=== PATIENT | female | born 1970 ===

== ENCOUNTER 2018-01-14 06:52 | Inpatient (IN) | payer SELFPAY ==
[2018-01-14 06:53] VITALS: BMI 44.5
[2018-01-14] MEDS ORDERED: Sodium Chloride 0.9% 1,000 ML IV ONE (07:15)
[2018-01-14] MEDS ORDERED: Sodium Chloride 0.9% 1,000 ML ONE (07:29)
--- NOTE | 2018-01-14 08:07 | C.PDOC ---
History Of Present Illness 47-year-old female, presents to the emergency department for evaluation of epigastrc and right upper quadrant abdominal pain, that is associated with nausea and a few episodes of non-bloody/non-bilious vomiting. Patient admits to decreased appetite. States she was able to tolerate PO intake yesterday without vomiting. She notes associated black stool. No fever, chills, back pain, dizziness, chest pain, shortness of breath or any other associated symptoms. No other complaints at this time. Time Seen by Provider: 01/14/18 07:07 Chief Complaint (Nursing): Abdominal Pain History Per: Patient History/Exam Limitations: no limitations Onset/Duration Of Symptoms: Waxing/Waning Current Symptoms Are (Timing): Still Present Severity: Moderate Location Of Pain/Discomfort: RUQ, Epigastric Past Medical History Reviewed: Historical Data, Nursing Documentation, Vital Signs Vital Signs: Last Vital Signs Temp 98.4 F 01/14/18 15:45 Pulse 66 01/14/18 16:06 Resp 20 01/14/18 15:45 BP 106/69 01/14/18 15:45 Pulse Ox 98 01/14/18 15:45 - Medical History PMH: Deep Vein Thrombosis, Gastritis Family History: States: No Known Family Hx - Social History Hx Tobacco Use: No Hx Alcohol Use: No Hx Substance Use: No - Immunization History Hx Tetanus Toxoid Vaccination: No Hx Influenza Vaccination: No Hx Pneumococcal Vaccination: No Review Of Systems Constitutional: Negative for: Fever, Chills Cardiovascular: Negative for: Chest Pain, Palpitations Respiratory: Negative for: Shortness of Breath Gastrointestinal: Positive for: Nausea, Vomiting, Abdominal Pain, Melena Skin: Negative for: Rash Neurological: Negative for: Weakness, Numbness, Headache, Dizziness Physical Exam - Physical Exam Appears: Well, Non-toxic, No Acute Distress Skin: Normal Color, Warm, Dry, No Rash Head: Normacephalic Eye(s): bilateral: PERRL Nose: No Flaring, No Discharge Oral Mucosa: Moist, No Drooling Throat: No Erythema, No Drooling Neck: Normal ROM, Trachea Midline, Supple Chest: Symmetrical Cardiovascular: Rhythm Regular, No Murmur Respiratory: No Decreased Breath Sounds, No Accessory Muscle Use, No Stridor, No Wheezing Gastrointestinal/Abdominal: Soft, Tenderness (epigastric, mod right upper quadrant.), No Distention, No Guarding, No Rebound Back: No CVA Tenderness Extremity: Normal ROM, No Deformity, No Swelling Neurological/Psych: Oriented x3, Normal Speech ED Course And Treatment - Laboratory Results Result Diagrams: 01/14/18 08:04 01/14/18 08:04 Lab Interpretation: Normal ECG: Interpreted By Me, Viewed By Me ECG Rhythm: Sinus Rhythm (64) ECG Interpretation: Normal O2 Sat by Pulse Oximetry: 97 (RA) Pulse Ox Interpretation: Normal - CT Scan/US Ct abd/pelvis Other Rad Studies (CT/US): Radiology Report Reviewed CT/US Interpretation: pprover : Felice Winn MD. Approver2 : Report Date : 01/14/2018 10:23:32. My Comment : . This report is currently processing and HAS NOT BEEN OFFICIALLY SIGNED BY THE PHYSICIAN - ESTIMATED TIME OF APPROVAL IS 01/14/2018 11:16. Date of service: 01/14/2018. PROCEDURE: CT Abdomen and Pelvis with contrast. HISTORY: abd pain. COMPARISON: None. TECHNIQUE: Contrast dose: 100 mL Visipaque 320. Radiation dose: Total exam DLP = 590.07 mGy-cm. This CT exam was performed using one or more of the following dose reduction techniques: Automated exposure control, adjustment of the mA and/or kV according to patient size, and/or use of iterative reconstruction technique. FINDINGS: LOWER THORAX: Unremarkable. LIVER: Unremarkable. No gross lesion or ductal dilatation. GALLBLADDER AND BILE DUCTS : Cholelithiasis. Mild mural thickening. Findings somewhat concerning for cholecystitis. No pericholecystic fluid/ inflammatory change. Consider correlation with ultrasound. PANCREAS: Unremarkable. No gross lesion or ductal dilatation. SPLEEN: Unremarkable. ADRENALS: Unremarkable. No mass. KIDNEYS AND URETERS: Unremarkable. No hydronephrosis. No solid mass. VASCULATURE: Unremarkable. No aortic aneurysm. BOWEL: Unremarkable. No obstruction. No gross mural thickening. APPENDIX: Normal appendix. PERITONEUM : Unremarkable. No free fluid. No free air. LYMPH NODES: Unremarkable. No enlarged lymph nodes. BLADDER: Unremarkable. REPRODUCTIVE: Normal uterus. Intrauterine device noted. Two left ovarian cysts, 2.1 cm and 2.6 cm. Likely physiologic. BONES: No acute fracture. OTHER FINDINGS: In the gluteal subcutaneous soft tissues, there is heterogeneous soft tissue density which may reflect cosmetic far in substance injection. Please correlate with history. IMPRESSION: Findings concerning for cholecystitis. Consider correlation with ultrasound examination. 2 left ovarian cysts, likely physiologic. Minor findings as above. Progress Note: Pt was OBS in ED for 5 hours and remained stable. On re- evaluation, pt is afebrile, hemodynamicaly stable. Still c/o pain RUQ. ENT: no acute findings. Lungs: CTA B/L, BS equal B/L. Abd: (+) mod RUQ tenderness, (-) guaridng, (-) rebound. neurologicaly intact. Blood work review and appears normal. Imaging review and c/w acute cholecystitis. results review and discussed with patient, admission offered. Surgical consult called. Admission arranged. Disposition - Disposition Disposition: HOSPITALIZED Disposition Time: 13:40 Condition: GOOD - Clinical Impression Clinical Impression: Cholecystitis - Scribe Statement The provider has reviewed the documentation as recorded by the Scribe (Gillian Sierra) All medical record entries made by the Scribe were at my direction and personally dictated by me. I have reviewed the chart and agree that the record accurately reflects my personal performance of the history, physical exam, medical decision making, and the department course for this patient. I have also personally directed, reviewed, and agree with the discharge instructions and disposition.
[2018-01-14 08:17] LABS: BASO # 0.1 K/uL (0.0-0.2); BASO % 0.6 % (0.0-2.0); EOS # 0.1 K/uL (0.0-0.7); EOS % 0.9 % (0.0-4.0); HEMOGLOBIN 12.2 g/dL (11.0-16.0); LYMPH # 0.9 K/uL (1.0-4.3); LYMPH % 9.4 % (20.0-40.0); MEAN CELL VOLUME 88.4 fL (81.0-99.0); MEAN CORPUSCULAR HEMOGLOBIN 29.9 pg (27.0-31.0); MEAN CORPUSCULAR HGB CONC 33.8 g/dL (33.0-37.0); MEAN PLATELET VOLUME 8.3 fL (7.2-11.7); MONO # 0.4 K/uL (0.0-0.8); MONO % 4.5 % (0.0-10.0); NEUT # 8.2 K/uL (1.8-7.0); NEUT % 84.6 % (50.0-75.0); PLATELET COUNT 399 K/uL (130-400); RBC 4.08 Mil/uL (3.80-5.20); RED CELL DISTRIBUTION WIDTH 13.9 % (11.5-14.5)
[2018-01-14 08:20] LABS: HCG,QUALITATIVE URINE NEGATIVE (NEGATIVE)
[2018-01-14 08:21] LABS: WHITE BLOOD COUNT 9.7 K/uL (4.8-10.8)
[2018-01-14 08:30] LABS: URINE BILIRUBIN NEGATIVE (NEGATIVE); URINE BLOOD NEGATIVE (NEGATIVE); URINE CLARITY Hazy (Clear); URINE COLOR Yellow (YELLOW); URINE GLUCOSE (UA) NORMAL (Normal); URINE LEUKOCYTE ESTERASE NEG Leu/uL (Negative); URINE PROTEIN NEGATIVE (NEGATIVE); URINE UROBILINOGEN NORMAL mg/dL (0.2-1.0)
[2018-01-14 08:35] LABS: ALB/GLOB RATIO 1.5 (1.0-2.1); ALT/SGPT 33 U/L (9-52); AMYLASE 105 U/L (30-110); AST/SGOT 28 U/L (14-36); BLOOD UREA NITROGEN 9 mg/dL (7-17); CALCIUM 8.8 mg/dl (8.6-10.4); GFR AFRICAN-AMERICAN > 60; GFR NON-AFRICAN AMERICAN > 60; LIPASE 46 U/L (23-300)
[2018-01-14 08:52] LABS: SQUAMOUS EPITHIAL 1 /hpf (0-5); URINE AMORPHOUS SEDIMENT FEW /ul (<OCC)
[2018-01-14 09:04] LABS: LYMPHOCYTE 5 % (20-40); MONOCYTE 2 % (0-10); NEUTROPHIL 93 % (50-75); PLATELET ESTIMATE NORMAL (NORMAL); TOTAL CELLS COUNTED 100
[2018-01-14] MEDS ORDERED: Iodixanol 320 MG/ML 100 ML BOTTLE IV ONE (10:01)
--- NOTE | 2018-01-14 11:11 | CT ---
Date of service: 01/14/2018 PROCEDURE: CT Abdomen and Pelvis with contrast HISTORY: abd pain COMPARISON: None. TECHNIQUE: Contrast dose: 100 mL Visipaque 320 Radiation dose: Total exam DLP = 590.07 mGy-cm. This CT exam was performed using one or more of the following dose reduction techniques: Automated exposure control, adjustment of the mA and/or kV according to patient size, and/or use of iterative reconstruction technique. FINDINGS: LOWER THORAX: Unremarkable. LIVER: Unremarkable. No gross lesion or ductal dilatation. GALLBLADDER AND BILE DUCTS: Cholelithiasis. Mild mural thickening. Findings somewhat concerning for cholecystitis. No pericholecystic fluid/ inflammatory change. Consider correlation with ultrasound. PANCREAS: Unremarkable. No gross lesion or ductal dilatation. SPLEEN: Unremarkable. ADRENALS: Unremarkable. No mass. KIDNEYS AND URETERS: Unremarkable. No hydronephrosis. No solid mass. VASCULATURE: Unremarkable. No aortic aneurysm. BOWEL: Unremarkable. No obstruction. No gross mural thickening. APPENDIX: Normal appendix. PERITONEUM: Unremarkable. No free fluid. No free air. LYMPH NODES: Unremarkable. No enlarged lymph nodes. BLADDER: Unremarkable. REPRODUCTIVE: Normal uterus. Intrauterine device noted. Two left ovarian cysts, 2.1 cm and 2.6 cm. Likely physiologic. BONES: No acute fracture. OTHER FINDINGS: In the gluteal subcutaneous soft tissues, there is heterogeneous soft tissue density which may reflect cosmetic far in substance injection. Please correlate with history. IMPRESSION: Findings concerning for cholecystitis. Consider correlation with ultrasound examination. 2 left ovarian cysts, likely physiologic. Minor findings as above.
--- NOTE | 2018-01-14 13:35 | US ---
Date of service: 01/14/2018 HISTORY: RUQ pain COMPARISON: None. TECHNIQUE: Sonographic evaluation of the right upper quadrant of the abdomen. FINDINGS: LIVER: Measures 14.9 cm in length. Increased echogenicity of the liver parenchyma. No mass. No intrahepatic bile duct dilatation. GALLBLADDER: Cholelithiasis with large shadowing gallstones, including 1 in the gallbladder neck, and questionable areas of wall thickening. Sonographic Willingham sign was not elicited. COMMON BILE DUCT: Measures 5 mm. No stones. No dilatation. PANCREAS: Unremarkable as visualized. No mass. No ductal dilatation. RIGHT KIDNEY: Measures 11.3 x 3.7 x 4.0 cm in length. Normal echogenicity. No calculus, mass, or hydronephrosis. AORTA: No aneurysmal dilatation. IVC: Unremarkable. OTHER FINDINGS: None . IMPRESSION: Hepatic steatosis. Cholelithiasis with findings equivocal for acute cholecystitis. Nuclear medicine HIDA scan is recommended to further evaluate patency of the cystic duct.
--- NOTE | 2018-01-14 14:28 | CP.PCM.HP ---
<Anastasia Hair - Last Filed: 01/14/18 18:36> History of Present Illness - History of Present Illness History of Present Illness: cc: abdominal pain HPI: Patient is a 47 year old female with dyslipidemia complaining of abdominal pain x5 days. Characterizes pain as severe, rated as 10/10 last night , which spurred her to come in today. Currently rates the pain as 2/10. Patient states that pain wakes her up in the middle of the night, and she denies any timeline pattern with meals or bowel movements. Patient describes pain as nonradiating and localized to the right upper quadrant and towards midline, with additional pain to the right shoulder with deep inspiration. She has only started having these pains since she started taking "[place] weight-loss seeds ", but also that if she did not consume them she would be constipated. Patient started taking Pepto-bismol 4 days ago (Fri), which did not relieve her symptoms. Apple-cider vinegar with baking soda aided her manually induced vomiting (x3 episodes) because emesis relieves her pain. She believes that the induction of vomiting has contributed to the development of a nonproductive cough and sore throat. Patient states that she has noticed black stool starting 5 days ago (Addis). Patient went to [place] last month (12/15-) where she ate large quantities of seafood. She frequently eats seafood in the [facility] as well. Patient also complains of chills and some tingling in hands bilaterally. Patient denies hematochezia, hematemesis, dysurea, urinary frequency, chest pain , palpitations, dyspnea, and fever, headache, dizziness. Past medical history: dyslipidemia, anemia, broken wrist (left) Allergies: NKDA Medications: Ranitidine, TUMs Past surgical history: C section in 2012, gastrointestinal polyp resection Family history: -Father: hypertension, coronary artery disease ([place] at 70 years old), hernia, possible prostate cancer -Mother: hernia -Grandfather: prostate cancer -Grandmother: uterine cancer LMP: June, sunil-menopausal., light bleeding since then Social: Social alcohol, one 12oz beer per week. Denies ever tobacco, ever illicit drugs Full Code Present on Admission - Present on Admission Any Indicators Present on Admission: No Review of Systems - Constitutional Constitutional: Chills, Headache. absent: Fever - EENT Nose/Mouth/Throat: Other Additional comments: bitter taste - Cardiovascular Cardiovascular: Chest Pain. absent: Palpitations, Radiating Pain - Respiratory Respiratory: Cough. absent: Dyspnea, Hemoptysis, Excessive Mucous Production - Gastrointestinal Gastrointestinal: Melena, Odynophagia, Vomiting. absent: Constipation, Dysphagia, Hematemesis, Hematochezia, Nausea - Genitourinary Genitourinary: absent: Difficulty Urinating, Dysuria, Pyuria, Urinary Frequency - Reproductive: Female Reproductive:Female: Light Menses - Menstruation Menstruation: Light Menses - Musculoskeletal Musculoskeletal: Tingling Additional comments: both hands - Integumentary Integumentary: absent: Erythema, Lesions, Rash - Neurological Neurological: Headaches, Tingling Past Patient History - Infectious Disease Hx of Infectious Diseases: None - Past Social History Smoking Status: Never Smoked Alcohol: Social Drugs: Denies - CARDIAC Hx Cardiac Disorders: Yes - PULMONARY Hx Respiratory Disorders: No - NEUROLOGICAL Hx Neurological Disorder: No - HEENT Hx HEENT Problems: No - ENDOCRINE/METABOLIC Hx Endocrine Disorders: No - HEMATOLOGICAL/ONCOLOGICAL Hx Blood Disorders: Yes Other/Comment: COAGULUPATHY - INTEGUMENTARY Hx Dermatological Problems: No - MUSCULOSKELETAL/RHEUMATOLOGICAL Hx Musculoskeletal Disorders: No - GASTROINTESTINAL Hx Gastritis: Yes - GENITOURINARY/GYNECOLOGICAL Hx Genitourinary Disorders: No - PSYCHIATRIC Hx Substance Use: No - SURGICAL HISTORY Hx Surgeries: Yes Hx Section: Yes Other/Comment: stomach tumor surgery - ANESTHESIA Hx Anesthesia: No Hx Anesthesia Reactions: No Hx Malignant Hyperthermia: No Meds Allergies/Adverse Reactions: Allergies Allergy/AdvReac Type Severity Reaction Status Date / Time No Known Allergies Allergy Verified 08/22/16 10:12 Physical Exam - Constitutional Appears: Well, No Acute Distress - Head Exam Head Exam: ATRAUMATIC, NORMAL INSPECTION, NORMOCEPHALIC - Eye Exam Eye Exam: EOMI, Normal appearance, PERRL. absent: Scleral icterus Pupil Exam: NORMAL ACCOMODATION, PERRL - ENT Exam ENT Exam: Mucous Membranes Dry - Neck Exam Neck exam: Positive for: Normal Inspection, Tenderness. Negative for: Lymphadenopathy, Thyromegaly - Respiratory Exam Respiratory Exam: Clear to Auscultation Bilateral, NORMAL BREATHING PATTERN. absent: Accessory Muscle Use, Rales, Rhonchi, Wheezes, Respiratory Distress, Stridor - Cardiovascular Exam Cardiovascular Exam: REGULAR RHYTHM, RRR, +S1, +S2 - GI/Abdominal Exam GI & Abdominal Exam: Guarding, Normal Bowel Sounds, Soft, Tenderness. absent: Firm, Rebound, Rigid Additional comments: right upper quadrant tenderness upon palpation no peritoneal sign, negative Willingham's sign, referred pain to right shoulder on deep inspiration obese - Rectal Exam Rectal Exam: NORMAL INSPECTION. absent: Black Stool Additional comments: Pimple on mid upper right cheek No gross blood on observation No hemorrhoids, varices noticed on palpation No gross blood or stool in rectal vault - Extremities Exam Extremities exam: Positive for: normal inspection, pedal pulses present. Negative for: pedal edema, tenderness Additional comments: IV in place, c/d - Skin Skin Exam: Dry, Intact, Normal Color, Warm Results - Vital Signs Recent Vital Signs: Last Vital Signs Temp 98.3 F 01/14/18 11:42 Pulse 59 L 01/14/18 11:42 Resp 18 01/14/18 11:42 BP 101/68 01/14/18 11:42 Pulse Ox 97 01/14/18 14:13 - Labs Result Diagrams: 01/14/18 08:04 01/14/18 08:04 Labs: Laboratory Results - last 24 hr 01/14/18 01/14/18 01/14/18 08:04 08:04 08:04 WBC 9.7 D RBC 4.08 Hgb 12.2 Hct 36.1 MCV 88.4 MCH 29.9 MCHC 33.8 RDW 13.9 Plt Count 399 MPV 8.3 Neut % (Auto) 84.6 H Lymph % (Auto) 9.[address] [place] % (Auto) 4.5 Eos % (Auto) 0.9 Baso % (Auto) 0.6 Neut # (Auto) 8.2 H Lymph # (Auto) 0.[address] [place] # (Auto) 0.4 Eos # (Auto) 0.1 Baso # (Auto) 0.1 Neutrophils % (Manual) 93 H Lymphocytes % (Manual) 5 L Monocytes % (Manual) 2 Platelet Estimate Normal RBC Morphology Normal Sodium 140 Potassium 3.8 Chloride 101 Carbon Dioxide 30 Anion Gap 12 BUN 9 Creatinine 0.6 L Est GFR ( Amer) > 60 Est GFR (Non-Af Amer) > 60 Random Glucose 115 H Calcium 8.8 Total Bilirubin 0.2 AST 28 ALT 33 Alkaline Phosphatase 117 Total Protein 6.7 Albumin 4.0 Globulin 2.7 Albumin/Globulin Ratio 1.5 Amylase 105 Lipase 46 Urine Color Yellow Urine Clarity Hazy Urine pH 8.0 Ur Specific [place] 1.011 Urine Protein Negative Urine Glucose (UA) Normal Urine Ketones Negative Urine Blood Negative Urine Nitrate Negative Urine Bilirubin Negative Urine Urobilinogen Normal Ur Leukocyte Esterase Neg Urine WBC (Auto) 1 Urine RBC (Auto) < 1 Ur Squamous Epith Cells 1 Calcium Oxalate Crystal None Amorphous Sediment Few H Urine Bacteria None Urine HCG, Qual Negative Assessment & Plan - Assessment and Plan (Free Text) Plan: 1) Abdominal Pain, acute cholecystitis biliary colic pain x5 days Total bili on admission: 0.2 Amylase on admission: 105 Lipase on admission: [address] (01/14/18): Mild mural thickening. Findings somewhat concerning for cholecystitis. No pericholecystic fluid/inflammatory change. Two left ovarian cysts, 2.1 cm and 2.6 cm, likely physiologic. Abd US (01/14/18): Cholelithiasis with findings equivocal for acute cholecystitis. Surgery consulted: Dr. Peoples - luzma appreciated - scheduled for lap connie in the am avila (01/15) - NPO starting now Medications: -Flagyl 250mg in 50mls @ 100mls/hr IVPB q8h -Dilaudid 0.5mg IV q4h PRN for pain -NS 1L at 100mls/hr IV q10h 2) Black Stools Started x5 days, before Pepto-bismol use Unobserved this visit H&H on admission: 12.2 and 36.1, respectively Hx gastritis, home TUMs use. No NSAIDs, no Fe, no ASA. Rectal exam: benign GI consulted: Dr. Sandra - luzma appreciated - EGD in the AM - NPO starting now - stool occult blood x3 - f/u CBC in the AM for H&H - Protonix 40mg IV q12 3) Lipid disorder On no medications for cholesterol - f/u lipid panel - consider starting statin - discuss lifestyle modifications to control her weight 4) Vitamin D deficiency - f/u VitD on am labs 5) Overweight - mildly hyperglycemic on admission - f/u lipid panel - f/u A1c - f/u TSH Prophylactic Measures - anticoag held for now until r/o GI bleed - Protonix 40mg IV q12h - NPO until surgery tomorrow - monitor on tele Anastasia Hair PGY-1. Case discussed with Dr. Crump. - Date & Time Date: 01/14/18 Time: 18:13 <Jeannine Crump V - Last Filed: 01/14/18 22:46> Results - Vital Signs Recent Vital Signs: Last Vital Signs Temp 98.5 F 01/14/18 15:10 Pulse 66 01/14/18 15:10 Resp 16 01/14/18 15:10 BP 135/85 01/14/18 15:10 Pulse Ox 99 01/14/18 15:10 - Labs Result Diagrams: 01/14/18 08:04 01/14/18 08:04 Labs: Laboratory Results - last 24 hr 01/14/18 01/14/18 01/14/18 08:04 08:04 08:04 WBC 9.7 D RBC 4.08 Hgb 12.2 Hct 36.1 MCV 88.4 MCH 29.9 MCHC 33.8 RDW 13.9 Plt Count 399 MPV 8.3 Neut % (Auto) 84.6 H Lymph % (Auto) 9.[address] [place] % (Auto) 4.5 Eos % (Auto) 0.9 Baso % (Auto) 0.6 Neut # (Auto) 8.2 H Lymph # (Auto) 0.[address] [place] # (Auto) 0.4 Eos # (Auto) 0.1 Baso # (Auto) 0.1 Neutrophils % (Manual) 93 H Lymphocytes % (Manual) 5 L Monocytes % (Manual) 2 Platelet Estimate Normal RBC Morphology Normal Sodium 140 Potassium 3.8 Chloride 101 Carbon Dioxide 30 Anion Gap 12 BUN 9 Creatinine 0.6 L Est GFR ( Amer) > 60 Est GFR (Non-Af Amer) > 60 Random Glucose 115 H Calcium 8.8 Total Bilirubin 0.2 AST 28 ALT 33 Alkaline Phosphatase 117 Total Protein 6.7 Albumin 4.0 Globulin 2.7 Albumin/Globulin Ratio 1.5 Amylase 105 Lipase 46 Beta HCG, Quant < 2.39 Urine Color Yellow Urine Clarity Hazy Urine pH 8.0 Ur Specific [place] 1.011 Urine Protein Negative Urine Glucose (UA) Normal Urine Ketones Negative Urine Blood Negative Urine Nitrate Negative Urine Bilirubin Negative Urine Urobilinogen Normal Ur Leukocyte Esterase Neg Urine WBC (Auto) 1 Urine RBC (Auto) < 1 Ur Squamous Epith Cells 1 Calcium Oxalate Crystal None Amorphous Sediment Few H Urine Bacteria None Urine HCG, Qual Negative Attending/Attestation - Attestation I have personally seen and examined this patient.: Yes I have fully participated in the care of the patient.: Yes I have reviewed all pertinent clinical information: Yes Notes (Text): 47-year-old female past medical history of gastritis, ulcers, polyp, elevated cholesterol, vitamin D deficiency comes in with epigastric abdominal pain since . Patient reports epigastric abdominal pain that has been initially as intermittent pain, took Randitine 2 tabs associated with GERD nausea vomiting but has become more frequent and cannot control it. Patient notes the Sunday she started using Pepto-Bismol liquid but also noted that she was having black stool day prior but unclear if it's due to Pepto-Bismol or otherwise. Patient denies NSAIDs, denies aspirin, and denies iron tablets. Patient reports that she 's been having black stool every day, but reports last stool was yesterday which is black and yellow, denies it was covered in blood denies any rectal bleeding. patient also reports that she self-induced vomiting makes her stomach feel better using apple cider. Patient reports his colonoscopy in 2007 she notes history of gastritis, ulcer, and a benign polyp. Patient reports a family history father of gastritis only. Denies any family history of colon cancer. In the ED patient given Pepcid 20 mg IV 1, Toradol 30 mg IV 1, Zofran 4 mg IV 1, Protonix 40 IVP, 1 and a saline bolus at 1 L. EKG shows normal sinus rhythm chest x-ray not officially read but no active disease noted coagulation normal HCG negative: UA negative 1) Abdominal pain Acute cholecystitis History of ulcer, gastritis, benign polyp Assessment/plan Prior history of gastritis, ulcers, benign polyp General surgery on consult GI on consult Monitor CBC Lipase normal amylase normal CAT scan abdomen and pelvis findings concerning for cholecystitis. Consider correlation with ultrasound examination. 2 left ovarian cysts. Likely physiologic. Abdominal ultrasound hepatic steatosis. Cholelithiasis with findings equivocal for acute cholecystitis. Nuclear HIDA scan recommended to evaluate patency of the cystic duct. Protonix 40 IV every 12 hours. We'll repeat CBC to my monitor hemoglobin A did advise patient next and that she has a bowel movement to please ask the nurse to observe to see if this is truly black or not. Patient reports she has not received any Pepto-Bismol since Sunday. Pending EKG, portable chest x-ray Flagyl 500 IV every 8 hours Zosyn 3.375 IV every 6 hours 2. Black Stool Assessment/plan Prior history of gastritis, ulcers, benign polyp however confounded by recent Pepto-Bismol use A did advise patient next and that she has a bowel movement to please ask the nurse to observe to see if this is truly black or not. Patient reports she has not received any Pepto-Bismol since Sunday. Monitor CBC for any acute drops in hemoglobinw aiting on second CBC. H&H opacity relatively in the 11-12s Protonix 40 mg IV every 12hours No NSAIDs, no iron, no aspirin Rectal exam: normal no stool obtained, noted pimple performed by resident Occult blood 3 3. Lipid disorder Assessment plan She reports she does not take any medications to help control her cholesterol. We will repeat lipid panel in the morning and see if we need to start a statin or not. Patient will need lifestyle modifications to control her over weight/ 4. Vitamin D deficiency Assessment/Plan Noted review EMR we'll repeat vitamin D level 5. Overweight Assessment/Plan Patient mildly hyperglycemic on admission We will check lipid panel, A1c, TSH in a.m. 6. Prophylactic measure We'll hold chemical anticoagulation for possible procedure Protonix 40 IV every 12 hours Monitor on telemetry for at least 24 hours in light of black stool complaint.
[2018-01-14] MEDS ORDERED: metroNIDAZOLE IV 250mg/50 ml 250 MG/50 ML BAG IVPB SCH (15:00)
--- NOTE | 2018-01-14 15:19 | CP.PCM.CON ---
History of Present Illness - History of Present Illness History of Present Illness: General Surgery Consult Note for Dr. Solares CC: Cholelithiasis This is a 47F with PMH of anemia and hyperlipidemia presents to [facility] with complaints of abdominal pain and nausea/vomiting. Patient was seen and evaluated in the ED. Patient indicates her symptoms began late at night 4 days ago. Patient reports sudden onset. Patient states that the pain woke her up from sleep. Patient reports having a late meal that night and her symptoms began a few hours afterwards. Patient had 3 episodes of non-bloody, non-bilious emesis. Patient reports anorexia. Patient rates pain as severe. Patient describes pain as sharp and constant located in the mid-epigastric region without radiation. Patient reports taking pepto bismal without relief. She notes that vomiting helps alleviate her symptoms, while any sort of movements exacerbate them. She reports no trouble with passing gas or completing bowel movements. Patient denies any recent illness or sick contacts. Patient reports that this is her fourth episode this year. Patient denies fever, chills, chest pain, shortness of breath, palpitations, diarrhea, constipation, incontinence, hematemesis, melena, and hematochezia. PMH - as stated in HPI PSH - Laparotomy for gastric tumor Allergies - NKDA Meds - Ranitidine FH - noncontributory Social - denies alcohol, tobacco, and illicit drug use Review of Systems - Constitutional Constitutional: Chills, Weakness. absent: Fever - EENT Eyes: absent: Blurred Vision, Change in Vision Ears: absent: Ear Pain, Abnormal Hearing Nose/Mouth/Throat: absent: Nose Pain, Odynophagia - Cardiovascular Cardiovascular: absent: Chest Pain, Dyspnea - Respiratory Respiratory: absent: Cough, Dyspnea - Gastrointestinal Gastrointestinal: Abdominal Pain, Nausea. absent: Vomiting - Genitourinary Genitourinary: absent: Dysuria, Hematuria - Musculoskeletal Musculoskeletal: absent: Arthralgias, Atrophy - Integumentary Integumentary: absent: Bleeding Lesions, Changing Lesions - Neurological Neurological: absent: Dizziness, Numbness - Psychiatric Psychiatric: absent: Anxiety, Depression - Hematologic/Lymphatic Hematologic: absent: Easy Bleeding, Easy Bruising Past Patient History - Infectious Disease Hx of Infectious Diseases: None - Past Social History Smoking Status: Never Smoked - CARDIAC Hx Cardiac Disorders: Yes - PULMONARY Hx Respiratory Disorders: No - NEUROLOGICAL Hx Neurological Disorder: No - HEENT Hx HEENT Problems: No - ENDOCRINE/METABOLIC Hx Endocrine Disorders: No - HEMATOLOGICAL/ONCOLOGICAL Hx Blood Disorders: Yes Other/Comment: COAGULUPATHY - INTEGUMENTARY Hx Dermatological Problems: No - MUSCULOSKELETAL/RHEUMATOLOGICAL Hx Musculoskeletal Disorders: No - GASTROINTESTINAL Hx Gastritis: Yes - GENITOURINARY/GYNECOLOGICAL Hx Genitourinary Disorders: No - PSYCHIATRIC Hx Substance Use: No - SURGICAL HISTORY Hx Surgeries: Yes Hx Section: Yes Other/Comment: stomach tumor surgery - ANESTHESIA Hx Anesthesia: No Hx Anesthesia Reactions: No Hx Malignant Hyperthermia: No Meds Allergies/Adverse Reactions: Allergies Allergy/AdvReac Type Severity Reaction Status Date / Time No Known Allergies Allergy Verified 08/22/16 10:12 - Medications Medications: Current Medications Metronidazole (Flagyl) 250 mg in 50 mls @ 100 mls/hr IVPB Q8H RAZ PRN Reason: Protocol Stop: 01/19/18 15:01 Sodium Chloride (Sodium Chloride 0.9%) 1,000 mls @ 100 mls/hr IV .Q10H RAZ Pantoprazole Sodium (Protonix Inj) 40 mg IVP Q12H RAZ Physical Exam - Constitutional Appears: No Acute Distress - Head Exam Head Exam: ATRAUMATIC, NORMAL INSPECTION - Eye Exam Eye Exam: EOMI, Normal appearance - ENT Exam ENT Exam: Mucous Membranes Moist, Normal Exam - Neck Exam Neck exam: Positive for: Normal Inspection. Negative for: Lymphadenopathy - Respiratory Exam Respiratory Exam: NORMAL BREATHING PATTERN. absent: Wheezes, Respiratory Distress, Stridor - Cardiovascular Exam Cardiovascular Exam: REGULAR RHYTHM, +S1, +S2 - GI/Abdominal Exam GI & Abdominal Exam: Normal Bowel Sounds, Soft. absent: Diminished Bowel Sounds , Distended - Rectal Exam Rectal Exam: Deferred - Extremities Exam Extremities exam: Positive for: normal inspection. Negative for: calf tenderness - Neurological Exam Neurological exam: Alert, Oriented x3 - Psychiatric Exam Psychiatric exam: Normal Affect, Normal Mood - Skin Skin Exam: Dry, Intact, Normal Color, Warm Results - Vital Signs Recent Vital Signs: Last Vital Signs Temp 98.5 F 01/14/18 15:10 Pulse 66 01/14/18 15:10 Resp 16 01/14/18 15:10 BP 135/85 01/14/18 15:10 Pulse Ox 99 01/14/18 15:10 - Labs Result Diagrams: 01/14/18 08:04 01/14/18 08:04 Labs: Laboratory Results - last 24 hr 01/14/18 01/14/18 01/14/18 08:04 08:04 08:04 WBC 9.7 D RBC 4.08 Hgb 12.2 Hct 36.1 MCV 88.4 MCH 29.9 MCHC 33.8 RDW 13.9 Plt Count 399 MPV 8.3 Neut % (Auto) 84.6 H Lymph % (Auto) 9.4 L Rhea % (Auto) 4.5 Eos % (Auto) 0.9 Baso % (Auto) 0.6 Neut # (Auto) 8.2 H Lymph # (Auto) 0.9 L Rhea # (Auto) 0.4 Eos # (Auto) 0.1 Baso # (Auto) 0.1 Neutrophils % (Manual) 93 H Lymphocytes % (Manual) 5 L Monocytes % (Manual) 2 Platelet Estimate Normal RBC Morphology Normal Sodium 140 Potassium 3.8 Chloride 101 Carbon Dioxide 30 Anion Gap 12 BUN 9 Creatinine 0.6 L Est GFR ( Amer) > 60 Est GFR (Non-Af Amer) > 60 Random Glucose 115 H Calcium 8.8 Total Bilirubin 0.2 AST 28 ALT 33 Alkaline Phosphatase 117 Total Protein 6.7 Albumin 4.0 Globulin 2.7 Albumin/Globulin Ratio 1.5 Amylase 105 Lipase 46 Beta HCG, Quant < 2.39 Urine Color Yellow Urine Clarity Hazy Urine pH 8.0 Ur Specific [place] 1.011 Urine Protein Negative Urine Glucose (UA) Normal Urine Ketones Negative Urine Blood Negative Urine Nitrate Negative Urine Bilirubin Negative Urine Urobilinogen Normal Ur Leukocyte Esterase Neg Urine WBC (Auto) 1 Urine RBC (Auto) < 1 Ur Squamous Epith Cells 1 Calcium Oxalate Crystal None Amorphous Sediment Few H Urine Bacteria None Urine HCG, Qual Negative - Imaging and Cardiology US - abdomen Status: Image reviewed by me, Report reviewed by me Assessment & Plan - Assessment and Plan (Free Text) Assessment: 47F presents with abdominal pain, nausea/vomiting Abdominal US GB stones possible areas of GB wall thickening, normal CBD. Plan: Plan: - NPO - IVF - IV antibiotics - Dilaudid - planned for OR Further recs per Dr. Sujatha Hardwick PGY3
[2018-01-14 15:31] LABS: INR 1.2; PROTHROMBIN TIME 12.7 SECONDS (9.7-12.2)
[2018-01-14] MEDS: Sodium Chloride 0.9% 1,000 ML IV SCH (16:16)
--- NOTE | 2018-01-14 16:43 | RAD ---
Date of service: 01/14/2018 HISTORY: pre op COMPARISON: Chest radiograph dated 08/22/2016. FINDINGS: LUNGS: No active pulmonary disease. PLEURA: No significant pleural effusion identified, no pneumothorax apparent. CARDIOVASCULAR: Normal. OSSEOUS STRUCTURES: No significant abnormalities. VISUALIZED UPPER ABDOMEN: Normal. OTHER FINDINGS: None. IMPRESSION: No active disease.
[2018-01-14] MEDS: metroNIDAZOLE IV 250mg/50 ml 250 MG/50 ML BAG IVPB SCH (17:22)
--- NOTE | 2018-01-14 18:01 | CP.PCM.CON ---
History of Present Illness - History of Present Illness History of Present Illness: 47 yo female admitted with abdominal pain and vomiting which began four days ago. She began taking Peptobismol and noted to have dark black stools. Hgb-12. Has h/o PUD reported in the past. Has chronic heartburn and takes TUMs prn. No overt bleeding of hematemesis. Found to have calculous cholecystitis on Sonogram with thick walled GB with stones. Asked to evaluate for possible GI bleeding. Case discussed in detail with Dr Hair, transportation logistics internship. Review of Systems - Cardiovascular Cardiovascular: absent: Chest Pain, Dyspnea, Leg Edema - Respiratory Respiratory: absent: Cough, Snoring - Gastrointestinal Gastrointestinal: As Per HPI Past Patient History - Infectious Disease Hx of Infectious Diseases: None - Past Medical History & Family History Past Medical History?: Yes - Past Social History Smoking Status: Never Smoked Chewing Tobacco Use: No Cigar Use: No Drugs: Denies - CARDIAC Hx Cardiac Disorders: Yes - PULMONARY Hx Respiratory Disorders: No - NEUROLOGICAL Hx Neurological Disorder: No - HEENT Hx HEENT Problems: No - ENDOCRINE/METABOLIC Hx Endocrine Disorders: No - HEMATOLOGICAL/ONCOLOGICAL Hx Blood Disorders: Yes Hx Cirrhosis: No Hx Hepatitis A: No Hx Hepatitis B: No Hx Hepatitis C: No Hx Human Immunodeficiency Virus (HIV): No Other/Comment: COAGULUPATHY - INTEGUMENTARY Hx Dermatological Problems: No - MUSCULOSKELETAL/RHEUMATOLOGICAL Hx Musculoskeletal Disorders: No - GASTROINTESTINAL Hx Gastrointestinal Disorders: No Hx Bowel Surgery: No Hx Clostridium Difficile: No Hx Colitis: No Hx Colostomy: No Hx Constipation: No Hx Crohn's Disease: No Hx Diarrhea: No Hx Diverticulitis: No Hx Esophageal Varices: No Hx Fatty Liver Disease: No Hx Gall Bladder Disease: Yes (gallstones) Hx Gastritis: Yes Hx Gastroesophageal Reflux: Yes Hx Hemorrhoids: No Hx Ileostomy: No Hx Irritable Bowel: No Hx Liver Failure: No Hx Nausea: No Hx Pancreatitis: No HX Swallowing Problems: No Hx Ulcer: Yes Hx Vomiting: Yes - GENITOURINARY/GYNECOLOGICAL Hx Genitourinary Disorders: No - PSYCHIATRIC Hx Substance Use: No - SURGICAL HISTORY Hx Surgeries: Yes Hx Section: Yes Other/Comment: stomach tumor surgery - ANESTHESIA Hx Anesthesia: No Hx Anesthesia Reactions: No Hx Malignant Hyperthermia: No Meds Allergies/Adverse Reactions: Allergies Allergy/AdvReac Type Severity Reaction Status Date / Time No Known Allergies Allergy Verified 08/22/16 10:12 - Medications Medications: Current Medications Hydromorphone HCl (Dilaudid) 0.5 mg IVP Q4H PRN PRN Reason: Pain, severe (8-10) Sodium Chloride (Sodium Chloride 0.9%) 1,000 mls @ 100 mls/hr IV .Q10H [facility] Last Admin: 01/14/18 16:16 Dose: 100 mls/hr Metronidazole (Flagyl) 250 mg in 50 mls @ 100 mls/hr IVPB Q8H RAZ PRN Reason: Protocol Stop: 01/19/18 17:01 Last Admin: 01/14/18 17:22 Dose: 100 mls/hr Pantoprazole Sodium (Protonix Inj) 40 mg IVP Q12H [facility] Physical Exam - Constitutional Appears: No Acute Distress - Head Exam Head Exam: ATRAUMATIC, NORMOCEPHALIC - Eye Exam Eye Exam: EOMI, PERRL - Respiratory Exam Respiratory Exam: NORMAL BREATHING PATTERN - Cardiovascular Exam Cardiovascular Exam: REGULAR RHYTHM, +S1 - GI/Abdominal Exam GI & Abdominal Exam: Normal Bowel Sounds, Soft, Tenderness. absent: Distended, Organomegaly, Rebound, Rigid Additional comments: epigastric and RUQ tenderness. No Willingham's sign. - Rectal Exam Rectal Exam: Deferred - Extremities Exam Extremities exam: Positive for: normal inspection. Negative for: pedal edema - Neurological Exam Neurological exam: Alert, Oriented x3 - Psychiatric Exam Psychiatric exam: Normal Affect, Normal Mood Results - Vital Signs Recent Vital Signs: Last Vital Signs Temp 98.4 F 01/14/18 15:45 Pulse 66 01/14/18 16:06 Resp 20 01/14/18 15:45 BP 106/69 01/14/18 15:45 Pulse Ox 98 01/14/18 15:45 - Labs Result Diagrams: 01/14/18 08:04 01/14/18 08:04 Labs: Laboratory Results - last 24 hr 01/14/18 01/14/18 01/14/18 08:04 08:04 08:04 WBC 9.7 D RBC 4.08 Hgb 12.2 Hct 36.1 MCV 88.4 MCH 29.9 MCHC 33.8 RDW 13.9 Plt Count 399 MPV 8.3 Neut % (Auto) 84.6 H Lymph % (Auto) 9.4 L [place] % (Auto) 4.5 Eos % (Auto) 0.9 Baso % (Auto) 0.6 Neut # (Auto) 8.2 H Lymph # (Auto) 0.9 L [place] # (Auto) 0.4 Eos # (Auto) 0.1 Baso # (Auto) 0.1 Neutrophils % (Manual) 93 H Lymphocytes % (Manual) 5 L Monocytes % (Manual) 2 Platelet Estimate Normal RBC Morphology Normal PT INR Sodium 140 Potassium 3.8 Chloride 101 Carbon Dioxide 30 Anion Gap 12 BUN 9 Creatinine 0.6 L Est GFR ( Amer) > 60 Est GFR (Non-Af Amer) > 60 Random Glucose 115 H Calcium 8.8 Total Bilirubin 0.2 AST 28 ALT 33 Alkaline Phosphatase 117 Total Protein 6.7 Albumin 4.0 Globulin 2.7 Albumin/Globulin Ratio 1.5 Amylase 105 Lipase 46 Beta HCG, Quant < 2.39 Urine Color Yellow Urine Clarity Hazy Urine pH 8.0 Ur Specific [place] 1.011 Urine Protein Negative Urine Glucose (UA) Normal Urine Ketones Negative Urine Blood Negative Urine Nitrate Negative Urine Bilirubin Negative Urine Urobilinogen Normal Ur Leukocyte Esterase Neg Urine WBC (Auto) 1 Urine RBC (Auto) < 1 Ur Squamous Epith Cells 1 Calcium Oxalate Crystal None Amorphous Sediment Few H Urine Bacteria None Urine HCG, Qual Negative 01/14/18 15:23 WBC RBC Hgb Hct MCV MCH MCHC RDW Plt Count MPV Neut % (Auto) Lymph % (Auto) [place] % (Auto) Eos % (Auto) Baso % (Auto) Neut # (Auto) Lymph # (Auto) [place] # (Auto) Eos # (Auto) Baso # (Auto) Neutrophils % (Manual) Lymphocytes % (Manual) Monocytes % (Manual) Platelet Estimate RBC Morphology PT 12.7 H INR 1.2 Sodium Potassium Chloride Carbon Dioxide Anion Gap BUN Creatinine Est GFR ( Amer) Est GFR (Non-Af Amer) Random Glucose Calcium Total Bilirubin AST ALT Alkaline Phosphatase Total Protein Albumin Globulin Albumin/Globulin Ratio Amylase Lipase Beta HCG, Quant Urine Color Urine Clarity Urine pH Ur Specific [place] Urine Protein Urine Glucose (UA) Urine Ketones Urine Blood Urine Nitrate Urine Bilirubin Urine Urobilinogen Ur Leukocyte Esterase Urine WBC (Auto) Urine RBC (Auto) Ur Squamous Epith Cells Calcium Oxalate Crystal Amorphous Sediment Urine Bacteria Urine HCG, Qual - Imaging and Cardiology US - abdomen Status: Image reviewed by me, Report reviewed by me Assessment & Plan (1) Epigastric pain Assessment and Plan: Patient with epigastric pain and dark stools, H/H stable but prior h/o PUD. Surgical service would like EGD done to exclude PUD, gastritis with hemorrhage prior to Lap Peyton. Black stool may be related to Peptobismol use. Stool was not seen on rectal exam earlier. No ASA or NSAID use, no Etoih. Stool for OBx3 Protonix IV Q12h NPO IV fluids EGD in am Status: Acute (2) Melena Assessment and Plan: GI bleeding vs Bismuth effect. Stool for OB ordered Status: Acute (3) Cholelithiasis Assessment and Plan: Lap Peyton planned after EGD is done. Case discussed with Dr Wren Status: Acute
--- NOTE | 2018-01-14 22:46 | CP.PCM.PCO ---
Physician Communication Note - Physician Communication Note Physician Communication Note: hold pneumonia vaccine; f/u outpatient.
[2018-01-15] MEDS: metroNIDAZOLE IV 250mg/50 ml 250 MG/50 ML BAG IVPB SCH ×3 (01:27→17:02)
[2018-01-15] MEDS: Sodium Chloride 0.9% 1,000 ML IV SCH ×2 (01:30→20:29)
[2018-01-15 06:39] LABS: BASO % 0.9 % (0.0-2.0); EOS # 0.2 K/uL (0.0-0.7); HEMOGLOBIN 11.2 g/dL (11.0-16.0); LYMPH # 1.3 K/uL (1.0-4.3); MEAN CELL VOLUME 88.3 fL (81.0-99.0); MEAN CORPUSCULAR HEMOGLOBIN 29.7 pg (27.0-31.0); MEAN CORPUSCULAR HGB CONC 33.7 g/dL (33.0-37.0); MEAN PLATELET VOLUME 7.9 fL (7.2-11.7); MONO # 0.4 K/uL (0.0-0.8); MONO % 8.5 % (0.0-10.0); NEUT # 2.9 K/uL (1.8-7.0); NEUT % 59.6 % (50.0-75.0); NRBC % 0.1 % (0.0-2.0); RBC 3.78 Mil/uL (3.80-5.20); RED CELL DISTRIBUTION WIDTH 13.5 % (11.5-14.5); WHITE BLOOD COUNT 4.9 K/uL (4.8-10.8)
[2018-01-15 06:48] LABS: ALB/GLOB RATIO 1.3 (1.0-2.1); ALBUMIN 3.2 g/dL (3.5-5.0); ALT/SGPT 30 U/L (9-52); AST/SGOT 25 U/L (14-36); BLOOD UREA NITROGEN 9 mg/dL (7-17); CALCIUM 7.7 mg/dl (8.6-10.4); GFR AFRICAN-AMERICAN > 60; GFR NON-AFRICAN AMERICAN > 60; HDL CHOLESTEROL 36 mg/dL (30-70)
[2018-01-15 06:58] LABS: LDL CHOLESTEROL 137 mg/dL (0-129)
[2018-01-15] MEDS ORDERED: Propofol 10 mg/ml Inj (20 ML) ONE (07:44)
[2018-01-15] MEDS ORDERED: Lidocaine Hydrochloride 5 ML INJ ONE (07:44)
--- NOTE | 2018-01-15 08:01 | CP.PCM.PN ---
Subjective - Date & Time of Evaluation Date of Evaluation: 01/15/18 Time of Evaluation: 08:00 - Subjective Subjective: EGD: Mild antral gastritis GERD without esophagitis Small hiatal hernia Rec: Cont Protonix po Lap Cholecystectomy No findings to suggest UGI etiology for her pain. Follow up in GI clinic after discharge to review biopsy results and further management. Will follow as needed. Objective - Vital Signs/Intake and Output Vital Signs (last 24 hours): Temp Pulse Resp BP Pulse Ox 98.1 F 52 L 20 93/48 L 95 01/15/18 07:32 01/15/18 07:32 01/15/18 07:32 01/15/18 07:32 01/15/18 07:32 Intake and Output: 01/15/18 01/15/18 06:59 18:59 Intake Total 1500 Balance 1500 - Medications Medications: Current Medications Hydromorphone HCl (Dilaudid) 0.5 mg IVP Q4H PRN PRN Reason: Pain, severe (8-10) Sodium Chloride (Sodium Chloride 0.9%) 1,000 mls @ 100 mls/hr IV .Q10H [facility] Last Admin: 01/15/18 01:30 Dose: Not Given Metronidazole (Flagyl) 250 mg in 50 mls @ 100 mls/hr IVPB Q8H RAZ PRN Reason: Protocol Stop: 01/19/18 17:01 Last Admin: 01/15/18 01:27 Dose: 100 mls/hr Pantoprazole Sodium (Protonix Inj) 40 mg IVP Q12H [facility] Last Admin: 01/15/18 06:28 Dose: 40 mg Pneumococcal Polyvalent Vaccine (Pneumovax 23 Vaccine) 0.5 ml IM .ONCE ONE Stop: 01/15/18 10:01 - Labs Labs: 01/15/18 06:23 01/15/18 06:20 PT 12.7 SECONDS (9.7-12.2) H 01/14/18 15:23 INR 1.2 01/14/18 15:23 Assessment and Plan (1) Epigastric pain Status: Acute (2) Melena Status: Acute (3) Cholelithiasis Status: Acute
[2018-01-15] MEDS ORDERED: Pneumococcal 23-Valent Vaccine IM ONE (10:00)
[2018-01-15] MEDS ORDERED: Pantoprazole 40 mg EC Tab PO SCH (10:00)
[2018-01-15] MEDS ORDERED: Bupivacaine 0.25% 20 ML INJ IJ ONE (14:35)
[2018-01-15] MEDS ORDERED: ceFAZolin IV 1 gm in Dextrose 0 GM/0 ML BAG IVPB ONE (14:35)
[2018-01-15] MEDS ORDERED: Lidocaine/Epinephrine 1% 1:100000 10 ML IJ ONE ×2 (14:36)
--- NOTE | 2018-01-15 14:42 | CP.PCM.PN ---
<Jeannine Crump V - Last Filed: 01/15/18 23:12> Objective - Vital Signs/Intake and Output Vital Signs (last 24 hours): Temp Pulse Resp BP Pulse Ox 98.4 F 62 18 99/57 L 98 01/15/18 15:00 01/15/18 16:15 01/15/18 15:00 01/15/18 15:00 01/15/18 15:00 Intake and Output: 01/15/18 01/16/18 18:59 06:59 Intake Total 300 1200 Balance 300 1200 - Medications Medications: Current Medications Hydromorphone HCl (Dilaudid) 0.5 mg IVP Q4H PRN PRN Reason: Pain, severe (8-10) Last Admin: 01/15/18 18:32 Dose: 0.5 mg Sodium Chloride (Sodium Chloride 0.9%) 1,000 mls @ 100 mls/hr IV .Q10H [facility] Last Admin: 01/15/18 20:29 Dose: Not Given Metronidazole (Flagyl) 250 mg in 50 mls @ 100 mls/hr IVPB Q8H RAZ PRN Reason: Protocol Stop: 01/19/18 17:01 Last Admin: 01/15/18 17:02 Dose: 100 mls/hr Pantoprazole Sodium (Protonix Inj) 40 mg IVP DAILY RAZ - Labs Labs: 01/15/18 06:23 01/15/18 06:20 PT 12.7 SECONDS (9.7-12.2) H 01/14/18 15:23 INR 1.2 01/14/18 15:23 Attending/Attestation - Attestation I have personally seen and examined this patient.: Yes I have fully participated in the care of the patient.: Yes I have reviewed all pertinent clinical information, including history, physical exam and plan: Yes Notes (Text): Patient seen, examined, and case discussed with day-time resident. Patient seen this morning with her at bedside. Patient underwent EGD, noted in GI note. No findings consistent for UGI bleeding. Help appreciated. Patient NPO for lap cholecystecomy later today. Per nursing notes, patient is rescheduled for lap connie tomorrow in the morning. Will continue IV Fluids, IV abx, and monitor. 1) Abdominal pain Acute cholecystitis History of ulcer, gastritis, benign polyp Assessment/plan * Prior history of gastritis, ulcers, benign polyp * General surgery on consult help appreciated * Rescheduled for surgery for tomorrow * GI on consult help appreciated * Completed EGD 01/15/18 today * Mild antral gastritis, GERD without esophagitis, Small hiatal hernia * no UGI etiology * Monitor CBC * Lipase normal * Amylase normal * CAT scan abdomen and pelvis findings concerning for cholecystitis. Consider correlation with ultrasound examination. 2 left ovarian cysts. Likely physiologic. * Abdominal ultrasound hepatic steatosis. Cholelithiasis with findings equivocal for acute cholecystitis. Nuclear HIDA scan recommended to evaluate patency of the cystic duct. * Protonix 40 IV every 12 hours. * A did advise patient next and that she has a bowel movement to please ask the nurse to observe to see if this is truly black or not. Patient reports she has not received any Pepto-Bismol since Sunday. * EKG NSR * Chest xray: * Flagyl 500 IV every 8 hours * Zosyn 3.375 IV every 6 hours 2. Black Stool Assessment/plan * Prior history of gastritis, ulcers, benign polyp however confounded by recent Pepto-Bismol use * Protonix 40 mg IV daily * No NSAIDs, no iron, no aspirin * Rectal exam: normal no stool obtained, noted pimple performed by resident * Occult blood 3 3. Lipid disorder Assessment plan * She reports she does not take any medications to help control her cholesterol. * Discussed Lipid panel results with the patient: elevated TG, elevated cholestrol, low HDL * Patient will need lifestyle modifications to control her over weight/ 4. Vitamin D deficiency Assessment/Plan * Noted review EMR we'll repeat vitamin D level supplemented 5. Overweight Assessment/Plan * Patient mildly hyperglycemic on admission * We will check lipid panel noted in EMR, A1c: 5.9, TSH pending 6. Impaired glucose tolerance Assessment/Plan * A1c: 5.9 * Will need diet/exercise for lifestyle modifications to prevent overt diabetes 7. Prophylactic measure * We'll hold chemical anticoagulation for possible procedure * Protonix 40 IV daily * Monitor on telemetry for at least 24 hours in light of black stool complaint. * NPO after midnight <Shena Sands - Last Filed: 01/16/18 01:30> Subjective - Date & Time of Evaluation Date of Evaluation: 01/15/18 Time of Evaluation: 09:40 - Subjective Subjective: PGY-[address] Crump. Patient seen and evaluated at bedside. Patient state she feels much better today , abdominal pain has decreased significantly. Denies nausea, vomiting, diarrhea , chest pain, shortness of breath, fever and chills. Objective - Vital Signs/Intake and Output Vital Signs (last 24 hours): Temp Pulse Resp BP Pulse Ox 97.9 F 59 L 20 107/71 95 01/15/18 08:58 01/15/18 12:20 01/15/18 08:58 01/15/18 12:20 01/15/18 08:58 Intake and Output: 01/15/18 01/15/18 06:59 18:59 Intake Total 1500 300 Balance 1500 300 - Medications Medications: Current Medications Hydromorphone HCl (Dilaudid) 0.5 mg IVP Q4H PRN PRN Reason: Pain, severe (8-10) Sodium Chloride (Sodium Chloride 0.9%) 1,000 mls @ 100 mls/hr IV .Q10H [facility] Last Admin: 01/15/18 01:30 Dose: Not Given Metronidazole (Flagyl) 250 mg in 50 mls @ 100 mls/hr IVPB Q8H RAZ PRN Reason: Protocol Stop: 01/19/18 17:01 Last Admin: 01/15/18 11:15 Dose: 100 mls/hr Pantoprazole Sodium (Protonix Ec Tab) 40 mg PO DAILY [facility] Last Admin: 01/15/18 11:18 Dose: 40 mg - Labs Labs: 01/15/18 06:23 01/15/18 06:20 PT 12.7 SECONDS (9.7-12.2) H 01/14/18 15:23 INR 1.2 01/14/18 15:23 - Constitutional Appears: No Acute Distress - Head Exam Head Exam: ATRAUMATIC, NORMOCEPHALIC - Eye Exam Eye Exam: EOMI, Normal appearance - ENT Exam ENT Exam: Mucous Membranes Moist - Respiratory Exam Respiratory Exam: Clear to Ausculation Bilateral, NORMAL BREATHING PATTERN. absent: Rales, Rhonchi, Wheezes - Cardiovascular Exam Cardiovascular Exam: REGULAR RHYTHM, +S1, +S2 - GI/Abdominal Exam GI & Abdominal Exam: Soft, Normal Bowel Sounds. absent: Guarding, Rigid, Tenderness - Extremities Exam Extremities Exam: Full ROM. absent: Pedal Edema, Tenderness - Neurological Exam Neurological Exam: Alert, Awake, Oriented x3 - Psychiatric Exam Psychiatric exam: Normal Mood - Skin Skin Exam: Dry, Intact, Normal Color Assessment and Plan - Assessment and Plan (Free Text) Plan: 1) Abdominal Pain, acute cholecystitis biliary colic pain x5 days Total bili on admission: 0.2 Amylase on admission: 105 Lipase on admission: [address] (01/14/18): Mild mural thickening. Findings somewhat concerning for cholecystitis. No pericholecystic fluid/inflammatory change. Two left ovarian cysts, 2.1 cm and 2.6 cm, likely physiologic. Abd US (01/14/18): Cholelithiasis with findings equivocal for acute cholecystitis. Surgery consulted: Dr. Peoples - luzma appreciated - lap connie (01/15) Medications: -Flagyl 250mg in 50mls @ 100mls/hr IVPB q8h -Dilaudid 0.5mg IV q4h PRN for pain -NS 1L at 100mls/hr IV q10h 2) Black Stools Started x5 days, before Pepto-bismol use Unobserved this visit H&H on admission: 12.2 and 36.1, respectively Hx gastritis, home TUMs use. No NSAIDs, no Fe, no ASA. Rectal exam: benign GI consulted: Dr. Sandra - luzma appreciated -rec follow up in GI clinic for biopsy results. can switch to PO protonix - EGD-mild antral gastritis, GERD, no esophagitis, small hiatal hernia - stool occult blood x3 fu - 01/15 H/H: 11.2/33.4 - Protonix 40mg IV q12 3) Lipid disorder On no medications for cholesterol - lipid panel: TG 158, CHL 205, LDL 137, HDL 36 - consider starting statin - discuss lifestyle modifications to control her weight 4) Vitamin D deficiency - VitD: 14.9 5) Overweight - mildly hyperglycemic on admission - A1c: 5.9 - TSH f/u Prophylactic Measures - anticoag held for now until r/o GI bleed - Protonix 40mg IV q12h - monitor on tele -SCDs Pt went for EGD today, no GI bleed found. Follow up biopsy results outpatient GI clinic. Pat also went to OR for lap connie today.
--- NOTE | 2018-01-15 17:46 | CARD ---
APPROVED REPORT Date of service: 01/14/2018 EKG Measurement Heart [id number] <Conclusion> Normal sinus rhythm Normal ECG
[2018-01-15] MEDS: HYDROmorphone 0.5 mg/0.5 ml ISec IVP PRN (18:32)
[2018-01-16] MEDS: metroNIDAZOLE IV 250mg/50 ml 250 MG/50 ML BAG IVPB SCH ×3 (01:35→17:15)
[2018-01-16] MEDS: Sodium Chloride 0.9% 1,000 ML IV SCH ×2 (01:41→17:15)
[2018-01-16 08:20] LABS: BASO # 0.1 K/uL (0.0-0.2); BASO % 0.8 % (0.0-2.0); EOS # 0.2 K/uL (0.0-0.7); EOS % 2.6 % (0.0-4.0); HEMOGLOBIN 11.5 g/dL (11.0-16.0); LYMPH # 1.3 K/uL (1.0-4.3); LYMPH % 18.6 % (20.0-40.0); MEAN CELL VOLUME 88.7 fL (81.0-99.0); MEAN CORPUSCULAR HEMOGLOBIN 30.2 pg (27.0-31.0); MEAN CORPUSCULAR HGB CONC 34.1 g/dL (33.0-37.0); MEAN PLATELET VOLUME 8.3 fL (7.2-11.7); MONO # 0.5 K/uL (0.0-0.8); MONO % 6.6 % (0.0-10.0); NEUT # 5.1 K/uL (1.8-7.0); NEUT % 71.4 % (50.0-75.0); NRBC % 0.1 % (0.0-2.0); RBC 3.81 Mil/uL (3.80-5.20); RED CELL DISTRIBUTION WIDTH 13.3 % (11.5-14.5); WHITE BLOOD COUNT 7.2 K/uL (4.8-10.8)
[2018-01-16 08:40] LABS: ALB/GLOB RATIO 1.4 (1.0-2.1); ALBUMIN 3.5 g/dL (3.5-5.0); ALT/SGPT 28 U/L (9-52); AST/SGOT 21 U/L (14-36); BLOOD UREA NITROGEN 8 mg/dL (7-17); CALCIUM 8.3 mg/dl (8.6-10.4); GFR AFRICAN-AMERICAN > 60; GFR NON-AFRICAN AMERICAN > 60
[2018-01-16] MEDS ORDERED: Pneumococcal 23-Valent Vaccine IM ONE (10:00)
[2018-01-16] MEDS ORDERED: Bupivacaine 0.25% 20 ML INJ IJ ONE (15:10)
[2018-01-16] MEDS ORDERED: Lidocaine/Epinephrine 1% 1:100000 10 ML IJ ONE (15:10)
[2018-01-16] MEDS ORDERED: ceFAZolin IV 2 gm in Dextrose 2 GM/50 ML BAG IVPB ONE (15:11)
[2018-01-16] MEDS ORDERED: Propofol 10 mg/ml Inj (20 ML) ONE (15:53)
[2018-01-16] MEDS ORDERED: Midazolam 2 MG/2 ML VIAL ONE (15:53)
[2018-01-16] MEDS ORDERED: Rocuronium 10 mg/ml (5 ml) ONE (16:36)
--- NOTE | 2018-01-16 17:37 | PCM.SURG1 ---
Surgeon's Initial Post Op Note - Surgeon's Notes Surgeon: Sujatha Mangle Press Catcher: Antonio PGY4, Clem FLORES Type of Anesthesia: General Endo, Local Pre-Operative Diagnosis: Cholelithiasis Operative Findings: normal anatomy Post-Operative Diagnosis: same Operation Performed: robotic assisted cholecystectomy Specimen/Specimens Removed: gallbladder Estimated Blood Loss: EBL {In ML}: 10 Blood Products Given: N/A Drains Used: No Drains Post-Op Condition: Good Date of Surgery/Procedure: 01/16/18 Time of Surgery/Procedure: 17:38
[2018-01-16] MEDS ORDERED: HYDROmorphone 0.5 mg/0.5 ml ISec IVP PRN (17:38)
[2018-01-16] MEDS: Oxycodone/Acetaminophen 5/325 mg Tab PO PRN (19:31)
[2018-01-16] MEDS: Lactated Ringer's 1,000 ML IV SCH (19:32)
[2018-01-16] MEDS: HYDROmorphone 0.5 mg/0.5 ml ISec IVP PRN (22:34)
--- NOTE | 2018-01-16 22:47 | CP.PCM.PN ---
<Shena Sands P - Last Filed: 01/16/18 22:20> Subjective - Date & Time of Evaluation Date of Evaluation: 01/16/18 Time of Evaluation: 09:00 - Subjective Subjective: PGY-1 Medicine note for doctor Crump. Patient seen and evaluated at bedside. Patient in no acute distress. Reports an episode of vomiting last, but feels much better at the time of my exam. Denies abdominal pain. Denies fever, chills, chest pain, lightheadedness, dizziness, shortness of breath and any other symptoms. Objective - Vital Signs/Intake and Output Vital Signs (last 24 hours): Temp Pulse Resp BP Pulse Ox 97.8 F 62 20 116/77 96 01/16/18 19:19 01/16/18 19:49 01/16/18 19:19 01/16/18 19:19 01/16/18 19:19 Intake and Output: 01/16/18 01/17/18 18:59 06:59 Intake Total 1550 600 Balance 1550 600 - Medications Medications: Current Medications Hydromorphone HCl (Dilaudid) 0.5 mg IVP Q4H PRN PRN Reason: Pain, severe (8-10) Last Admin: 01/15/18 18:32 Dose: 0.5 mg Sodium Chloride (Sodium Chloride 0.9%) 1,000 mls @ 100 mls/hr IV .Q10H [facility] Last Admin: 01/16/18 17:15 Dose: Not Given Metronidazole (Flagyl) 250 mg in 50 mls @ 100 mls/hr IVPB Q8H [facility]Z PRN Reason: Protocol Stop: 01/19/18 17:01 Last Admin: 01/16/18 17:15 Dose: Not Given Lactated Ringer's (Lactated Ringer's) 1,000 mls @ 100 mls/hr IV .Q10H [facility] Last Admin: 01/16/18 19:32 Dose: 100 mls/hr Oxycodone/Acetaminophen (Percocet 5/325 Mg Tab) 1 tab PO Q4H PRN PRN Reason: Pain, moderate (4-7) Stop: 01/19/18 17:41 Last Admin: 01/16/18 19:31 Dose: 1 tab Pantoprazole Sodium (Protonix Inj) 40 mg IVP DAILY [facility] Last Admin: 01/16/18 09:52 Dose: 40 mg - Labs Labs: 01/16/18 08:11 01/16/18 08:11 PT 12.7 SECONDS (9.7-12.2) H 01/14/18 15:23 INR 1.2 01/14/18 15:23 - Constitutional Appears: Well, No Acute Distress - Head Exam Head Exam: ATRAUMATIC, NORMOCEPHALIC - Eye Exam Eye Exam: EOMI, Normal appearance - Respiratory Exam Respiratory Exam: Clear to Ausculation Bilateral, NORMAL BREATHING PATTERN. absent: Rales, Rhonchi, Wheezes - Cardiovascular Exam Cardiovascular Exam: REGULAR RHYTHM, +S1, +S2 - GI/Abdominal Exam GI & Abdominal Exam: Soft, Normal Bowel Sounds. absent: Distended, Guarding, Tenderness, Rebound - Extremities Exam Extremities Exam: Full ROM. absent: Pedal Edema, Tenderness Additional comments: bulging vein noted to anterior L lower extremity. No swelling, tenderness, erythema or warmth noted - Neurological Exam Neurological Exam: Alert, Awake, Oriented x3 - Psychiatric Exam Psychiatric exam: Normal Mood - Skin Skin Exam: Dry, Intact, Normal Color, Warm Assessment and Plan - Assessment and Plan (Free Text) Plan: 47 yo F admitted for cholecystitis. Abdominal Pain, acute cholecystitis Total bili on admission: 0.2 Amylase on admission: 105 Lipase on admission: [address] (01/14/18): Mild mural thickening. Findings somewhat concerning for cholecystitis. No pericholecystic fluid/inflammatory change. Two left ovarian cysts, 2.1 cm and 2.6 cm, likely physiologic. Abd US (01/14/18): Cholelithiasis with findings equivocal for acute cholecystitis. Surgery consulted: Dr. Peoples - luzma appreciated - lap connie (01/16) Medications: -Flagyl 250mg in 50mls @ 100mls/hr IVPB q8h -Percocet 5/325 1 tab q4h PRN for pain -LR Black Stools Started x5 days, before Pepto-bismol use Unobserved this visit H&H on admission: 12.2 and 36.1, respectively Hx gastritis, home TUMs use. No NSAIDs, no Fe, no ASA. Rectal exam: benign GI consulted: Dr. Sandra - luzma appreciated -rec follow up in GI clinic for biopsy results. can switch to PO protonix - EGD-mild antral gastritis, GERD, no esophagitis, small hiatal hernia -Path results: esophagal squamous mucosa with mild chronic inflammation. negative for changes of reflux esophagitis, alcian blue stain is negative for goblet cell metaplasia. PAS negative for fungal. Gastric antrum mucosa with mild chronic inflammation. H.Pylori negative. (See full report) - stool occult blood x3 fu - 01/15 H/H: 11.2/33.4 - Protonix 40mg IV q12 Lipid disorder On no medications for cholesterol - lipid panel: TG 158, CHL 205, LDL 137, HDL 36 - consider starting statin - discuss lifestyle modifications to control her weight Vitamin D deficiency - VitD: 14.9 Overweight - mildly hyperglycemic on admission - A1c: 5.9 - TSH: 3.42, Free T4: 0.94 Prophylactic Measures - anticoag held for now until r/o GI bleed - Protonix 40mg IV q12h - monitor on tele -SCDs Pt went to OR today for rescheduled lap connie. <Jeannine Crump V - Last Filed: 01/17/18 22:34> Objective - Vital Signs/Intake and Output Vital Signs (last 24 hours): Temp Pulse Resp BP Pulse Ox 98.2 F 59 L 18 114/67 98 01/17/18 15:37 01/17/18 15:37 01/17/18 15:37 01/17/18 15:37 01/17/18 15:37 Intake and Output: 01/17/18 01/18/18 18:59 06:59 Intake Total 1480 Output Total 480 Balance 1000 - Labs Labs: 01/17/18 07:37 01/17/18 07:37 PT 12.7 SECONDS (9.7-12.2) H 01/14/18 15:23 INR 1.2 01/14/18 15:23 Attending/Attestation - Attestation Notes (Text): This is late computer entry for 01/16/18. I have attempted to see patient twice today; however she is currently in the OR for cholecystitis. We will f/u with patient and surgery post-operatively. Assessment/Plan 1) Abdominal pain Acute cholecystitis History of ulcer, gastritis, benign polyp Assessment/plan * Prior history of gastritis, ulcers, benign polyp * General surgery on consult help appreciated * Rescheduled for surgery for today * Preoperative/intraoperative/postoperative management per surgery * GI on consult help appreciated * Completed EGD 01/15/18 today * Mild antral gastritis, GERD without esophagitis, Small hiatal hernia * no UGI etiology * f/u EGD results in the clinic * Monitor CBC * Lipase normal * Amylase normal * CAT scan abdomen and pelvis findings concerning for cholecystitis. Consider correlation with ultrasound examination. 2 left ovarian cysts. Likely physiologic. * Abdominal ultrasound hepatic steatosis. Cholelithiasis with findings equivocal for acute cholecystitis. Nuclear HIDA scan recommended to evaluate patency of the cystic duct. * Protonix 40 IV every 12 hours. * EKG NSR * Chest xray: no active disease * Flagyl 250 IV every 8 hours (active since 01/14/18) * Patient is not 2. Black Stool Assessment/plan * Has not had further episodes of black stool in the hospital * Prior history of gastritis, ulcers, benign polyp however confounded by recent Pepto-Bismol use * Completed EGD on 01/15/18-->Mild antral gastritis, GERD without esophagitis, Small hiatal hernia-->recommendations listed in report * Protonix 40 mg IV daily * No NSAIDs, no iron, no aspirin * Rectal exam: normal no stool obtained, noted pimple performed by resident * Occult blood 3: pending 3. Lipid disorder Assessment plan * She reports she does not take any medications to help control her cholesterol. * Discussed Lipid panel results with the patient: elevated TG, elevated cholestrol, low HDL * Patient will need lifestyle modifications to control her over weight 4. Vitamin D deficiency Assessment/Plan * Noted review EMR * She will need vitamin D supplement when she is able to tolerate diet 5. Overweight Assessment/Plan * Patient mildly hyperglycemic on admission * We will check lipid panel noted in EMR, A1c: 5.9, TSH normal 6. Impaired glucose tolerance Assessment/Plan * A1c: 5.9 * Will need diet/exercise for lifestyle modifications to prevent overt diabetes 7. Prophylactic measure * We'll hold chemical anticoagulation for possible procedure * Protonix 40 IV daily * NPO after midnight * Patient went to OR today. Disposition: Follow-up with patient who went to OR for acute cholecystitis.
[2018-01-17] MEDS: metroNIDAZOLE IV 250mg/50 ml 250 MG/50 ML BAG IVPB SCH ×2 (01:58→10:07)
[2018-01-17] MEDS: Lactated Ringer's 1,000 ML IV SCH (05:02)
[2018-01-17] MEDS: Sodium Chloride 0.9% 1,000 ML IV SCH ×2 (05:03→12:03)
[2018-01-17] MEDS: HYDROmorphone 0.5 mg/0.5 ml ISec IVP PRN (05:32)
--- NOTE | 2018-01-17 05:35 | OP ---
PROCEDURE DATE: 01/16/2018 PREOPERATIVE DIAGNOSES: 1. Acute cholecystitis. 2. Cholelithiasis. 3. Gastritis. POSTOPERATIVE DIAGNOSES: 1. Acute cholecystitis. 2. Cholelithiasis. 3. Gastritis. PROCEDURES DONE: Robotic cholecystectomy. SURGEON: Wilfredo Solares M.D. EMBEDDED CASE MANAGER: DWIGHT Rand. TYPE OF ANESTHESIA: General endotracheal tube anesthesia. ESTIMATED BLOOD LOSS: Around 10 mL. DRAINS: None. PATHOLOGY: Gallbladder with gallstone was sent for the pathology. COMPLICATIONS: None. INTRAOPERATIVE FINDINGS: The patient had changes of acute cholecystitis and cholelithiasis. DESCRIPTION OF THE PROCEDURE: On intraoperative steps, this is a 47-year-old female who was diagnosed with acute cholecystitis and cholelithiasis, and the patient was consented for robotic cholecystectomy, possible open, brought to the OR, placed supine on the operating table. After induction of the anesthesia, the abdomen was prepped and draped in usual sterile fashion. A supraumbilical transverse incision was made after incising the skin, subcutaneous tissue, and the fascia. A robotic camera port was placed. Another 3/8 mm port was placed in the upper abdomen. After that, the robot was brought in, camera arm as well as arm 1 and arm 2 was docked. The gallbladder was retracted cranially. Calot's triangle dissection was done. Cystic duct and cystic artery were identified and clipped at three places and cut in between 2 clips nearby gallbladder. The gallbladder was dissected free from the gallbladder fossa, taken in an EndoCatch bag, taken out through the umbilical port site, and sent off the table for pathology. Intraoperative Firefly was used to identify the ductal anatomy, and a top-down approach was done as well as critical view of the safety was identified before clipping the ducts, and there was a proper hemostasis in each and every part of the procedure. Gallbladder was taken out through the umbilical port site and sent off the table for pathology. All the instruments were taken out, robot was undocked, and all the port was taken out under vision. Pneumo was deflated. Umbilical port site was closed in two layers, the fascia with 0 Vicryl interrupted suture, skin with 4-0 Monocryl, and dry sterile dressing was applied. The patient tolerated the procedure well. Count of instrument and gauze was correct. There were no apparent complications. Wilfredo Solares MD [facility] # [id number]
[2018-01-17 07:51] LABS: BASO % 0.1 % (0.0-2.0); HEMOGLOBIN 11.3 g/dL (11.0-16.0); LYMPH # 0.9 K/uL (1.0-4.3); LYMPH % 8.7 % (20.0-40.0); MEAN CELL VOLUME 87.8 fL (81.0-99.0); MEAN CORPUSCULAR HEMOGLOBIN 30.2 pg (27.0-31.0); MEAN CORPUSCULAR HGB CONC 34.4 g/dL (33.0-37.0); MEAN PLATELET VOLUME 8.2 fL (7.2-11.7); MONO # 0.6 K/uL (0.0-0.8); MONO % 6.1 % (0.0-10.0); NEUT # 8.8 K/uL (1.8-7.0); NEUT % 85.1 % (50.0-75.0); PLATELET COUNT 350 K/uL (130-400); RBC 3.73 Mil/uL (3.80-5.20); RED CELL DISTRIBUTION WIDTH 13.5 % (11.5-14.5); WHITE BLOOD COUNT 10.3 K/uL (4.8-10.8)
[2018-01-17 08:27] LABS: ALB/GLOB RATIO 1.4 (1.0-2.1); ALBUMIN 3.6 g/dL (3.5-5.0); ALT/SGPT 69 U/L (9-52); AST/SGOT 83 U/L (14-36); BLOOD UREA NITROGEN 7 mg/dL (7-17); CALCIUM 8.3 mg/dl (8.6-10.4); GFR AFRICAN-AMERICAN > 60; GFR NON-AFRICAN AMERICAN > 60
[2018-01-17 09:40] LABS: BANDS 4 % (0-2); LYMPHOCYTE 8 % (20-40); MONOCYTE 3 % (0-10); NEUTROPHIL 85 % (50-75); PLATELET ESTIMATE NORMAL (NORMAL); TOTAL CELLS COUNTED 100
--- NOTE | 2018-01-17 11:47 | CP.PCM.PN ---
Subjective - Date & Time of Evaluation Date of Evaluation: 01/17/18 Time of Evaluation: 11:44 - Subjective Subjective: Surgery: Dr. Solares Pt seen and examined. Resting comfortably in bed. Pain controlled. No complaints. Objective - Vital Signs/Intake and Output Vital Signs (last 24 hours): Temp Pulse Resp BP Pulse Ox 98.3 F 59 L 20 108/68 96 01/17/18 07:00 01/17/18 09:11 01/17/18 07:00 01/17/18 07:00 01/17/18 07:00 Intake and Output: 01/17/18 01/17/18 06:59 18:59 Intake Total 1450 Output Total 800 Balance 650 - Medications Medications: Current Medications Sodium Chloride (Sodium Chloride 0.9%) 1,000 mls @ 100 mls/hr IV .Q10H [facility] Last Admin: 01/17/18 05:03 Dose: Not Given Metronidazole (Flagyl) 250 mg in 50 mls @ 100 mls/hr IVPB Q8H [facility] PRN Reason: Protocol Stop: 01/19/18 17:01 Last Admin: 01/17/18 10:07 Dose: 100 mls/hr Lactated Ringer's (Lactated Ringer's) 1,000 mls @ 100 mls/hr IV .Q10H [facility] Last Admin: 01/17/18 05:02 Dose: Not Given Morphine Sulfate (Morphine) 2 mg IVP STAT STA Stop: 01/17/18 11:43 Oxycodone/Acetaminophen (Percocet 5/325 Mg Tab) 1 tab PO Q4H PRN PRN Reason: Pain, moderate (4-7) Stop: 01/19/18 17:41 Last Admin: 01/16/18 19:31 Dose: 1 tab Pantoprazole Sodium (Protonix Inj) 40 mg IVP DAILY [facility] Last Admin: 01/17/18 10:07 Dose: 40 mg - Labs Labs: 01/17/18 07:37 01/17/18 07:37 PT 12.7 SECONDS (9.7-12.2) H 01/14/18 15:23 INR 1.2 01/14/18 15:23 - Constitutional Appears: Non-toxic, No Acute Distress - Head Exam Head Exam: ATRAUMATIC, NORMOCEPHALIC - Eye Exam Eye Exam: EOMI - ENT Exam ENT Exam: Mucous Membranes Moist - Neck Exam Neck Exam: Full ROM - Respiratory Exam Respiratory Exam: NORMAL BREATHING PATTERN. absent: Accessory Muscle Use, Respiratory Distress - GI/Abdominal Exam GI & Abdominal Exam: Soft, Tenderness (per-incisional ). absent: Distended, Firm, Guarding, Rigid, Rebound - Extremities Exam Extremities Exam: absent: Calf Tenderness, Pedal Edema - Neurological Exam Neurological Exam: Alert, Awake, Oriented x3 Assessment and Plan - Assessment and Plan (Free Text) Assessment: 47F w. cholelithiasis, POD#1 robotic connie -clear for D/C from surgical standpoint -F/U with Dr. Solares in 1-2 weeks -percocet for pain -Diet as tolerated -No heavy lifting >15-20 lbs for 4 weeks -d/w attending Antonio PGY4
[2018-01-17] MEDS: Oxycodone/Acetaminophen 5/325 mg Tab PO PRN (12:02)
--- NOTE | 2018-01-17 12:54 | CP.PCM.DIS ---
<Jeannine Crump V - Last Filed: 01/17/18 22:35> Provider - Provider Date of Admission: 01/14/18 13:47 Attending physician: Jeannine Crump, DO [facility] Course - Lab Results Lab Results: Most Recent Lab Values WBC 10.3 K/uL (4.8-10.8) 01/17/18 07:37 RBC 3.73 Mil/uL (3.80-5.20) L 01/17/18 07:37 Hgb 11.3 g/dL (11.0-16.0) 01/17/18 07:37 Hct 32.7 % (34.0-47.0) L 01/17/18 07:37 MCV 87.8 fL (81.0-99.0) 01/17/18 07:37 MCH 30.2 pg (27.0-31.0) 01/17/18 07:37 MCHC 34.4 g/dL (33.0-37.0) 01/17/18 07:37 RDW 13.5 % (11.5-14.5) 01/17/18 07:37 Plt Count 350 K/uL (130-400) 01/17/18 07:37 MPV 8.2 fL (7.2-11.7) 01/17/18 07:37 Neut % (Auto) 85.1 % (50.0-75.0) H 01/17/18 07:37 Lymph % (Auto) 8.7 % (20.0-40.0) L 01/17/18 07:37 [place] % (Auto) 6.1 % (0.0-10.0) 01/17/18 07:37 Eos % (Auto) 0.0 % (0.0-4.0) 01/17/18 07:37 Baso % (Auto) 0.1 % (0.0-2.0) 01/17/18 07:37 Neut # (Auto) 8.8 K/uL (1.8-7.0) H 01/17/18 07:37 Lymph # (Auto) 0.9 K/uL (1.0-4.3) L 01/17/18 07:37 [place] # (Auto) 0.6 K/uL (0.0-0.8) 01/17/18 07:37 Eos # (Auto) 0.0 K/uL (0.0-0.7) 01/17/18 07:37 Baso # (Auto) 0.0 K/uL (0.0-0.2) 01/17/18 07:37 Neutrophils % (Manual) 85 % (50-75) H 01/17/18 07:37 Band Neutrophils % 4 % (0-2) H 01/17/18 07:37 Lymphocytes % (Manual) 8 % (20-40) L 01/17/18 07:37 Monocytes % (Manual) 3 % (0-10) 01/17/18 07:37 Platelet Estimate Normal (NORMAL) 01/17/18 07:37 RBC Morphology Normal 01/17/18 07:37 PT 12.7 SECONDS (9.7-12.2) H 01/14/18 15:23 INR 1.2 01/14/18 15:23 Sodium 137 mmol/L (132-148) 01/17/18 07:37 Potassium 3.7 mmol/L (3.6-5.2) 01/17/18 07:37 Chloride 101 mmol/L (98-107) 01/17/18 07:37 Carbon Dioxide 26 mmol/L (22-30) 01/17/18 07:37 Anion Gap 14 (10-20) 01/17/18 07:37 BUN 7 mg/dL (7-17) 01/17/18 07:37 Creatinine 0.6 mg/dL (0.7-1.2) L 01/17/18 07:37 Est GFR ( Amer) > 60 01/17/18 07:37 Est GFR (Non-Af Amer) > 60 01/17/18 07:37 Random Glucose 91 mg/dL (65-105) 01/17/18 07:37 Hemoglobin A1c 5.9 % (4.2-6.5) 01/15/18 06:20 Calcium 8.3 mg/dl (8.6-10.4) L 01/17/18 07:37 Phosphorus 2.9 mg/dL (2.5-4.5) 01/16/18 08:11 Magnesium 1.9 mg/dL (1.6-2.3) 01/16/18 08:11 Total Bilirubin 0.4 mg/dL (0.2-1.3) 01/17/18 07:37 AST 83 U/L (14-36) H D 01/17/18 07:37 ALT 69 U/L (9-52) H D 01/17/18 07:37 Alkaline Phosphatase 67 U/L (38-126) 01/17/18 07:37 Total Protein 6.3 g/dL (6.3-8.3) 01/17/18 07:37 Albumin 3.6 g/dL (3.5-5.0) 01/17/18 07:37 Globulin 2.6 gm/dL (2.2-3.9) 01/17/18 07:37 Albumin/Globulin Ratio 1.4 (1.0-2.1) 01/17/18 07:37 Triglycerides 158 mg/dL (0-149) H D 01/15/18 06:20 Cholesterol 205 mg/dL (0-199) H 01/15/18 06:20 LDL Cholesterol Direct 137 mg/dL (0-129) H 01/15/18 06:20 HDL Cholesterol 36 mg/dL (30-70) 01/15/18 06:20 Amylase 105 U/L (30-110) 01/14/18 08:04 Lipase 46 U/L (23-300) 01/14/18 08:04 25-OH Vitamin D Total 14.9 NG/ML (30.0-100.0) L 01/15/18 06:20 Free T4 0.94 ng/dL (0.78-2.19) 01/16/18 08:11 TSH 3rd Generation 3.42 mIU/L (0.46-4.68) 01/16/18 08:11 Beta HCG, Quant < 2.39 mIU/ML 01/14/18 08:04 Urine Color Yellow (YELLOW) 01/14/18 08:04 Urine Clarity Hazy (Clear) 01/14/18 08:04 Urine pH 8.0 (5.0-8.0) 01/14/18 08:04 Ur Specific [place] 1.011 (1.003-1.030) 01/14/18 08:04 Urine Protein Negative mg/dL (NEGATIVE) 01/14/18 08:04 Urine Glucose (UA) Normal mg/dL (Normal) 01/14/18 08:04 Urine Ketones Negative mg/dL (NEGATIVE) 01/14/18 08:04 Urine Blood Negative (NEGATIVE) 01/14/18 08:04 Urine Nitrate Negative (NEGATIVE) 01/14/18 08:04 Urine Bilirubin Negative (NEGATIVE) 01/14/18 08:04 Urine Urobilinogen Normal mg/dL (0.2-1.0) 01/14/18 08:04 Ur Leukocyte Esterase Neg Guy/uL (Negative) 01/14/18 08:04 Urine WBC (Auto) 1 /hpf (0-5) 01/14/18 08:04 Urine RBC (Auto) < 1 /hpf (0-3) 01/14/18 08:04 Ur Squamous Epith Cells 1 /hpf (0-5) 01/14/18 08:04 Calcium Oxalate Crystal None /hpf (<OCC) 01/14/18 08:04 Amorphous Sediment Few /ul (<OCC) H 01/14/18 08:04 Urine Bacteria None (<OCC) 01/14/18 08:04 Urine HCG, Qual Negative (NEGATIVE) 01/16/18 10:40 Discharge Plan - Discharge Medications Prescriptions: Pantoprazole [Protonix EC Tab] 40 mg PO DAILY 30 Days #30 ect - Follow Up Plan Condition: GOOD Disposition: HOME/ ROUTINE Instructions: Low Cholesterol, Saturated Fat, and Trans Fat Diet , Cholecystectomy, Laparoscopic Surgery, Gallstones (DC), Pantoprazole, Cholecystitis (DC), Cholecystitis (GEN) Additional Instructions: Patient is medically stable for discharge. Follow up with your PMD at [facility] for repeat LFTs and to discuss results of lipid panel. Follow up in the clinic to discuss results of biopsy from EGD and possible follow up with GI. Script given to patient on discharge: Protonix 40mg by mouth once daily Percocet El paciente es mdicamente estable para el melissa. Rohit un seguimiento con meyers PMD en [facility] para repetir las pruebas LFT y para analizar los resultados del panel de lpidos. Rohit un seguimiento en la clnica para analizar los resultados de la biopsia de EGD y posible seguimiento con GI. Secuencia de comandos shelly al paciente en el momento del melissa: Protonix 40mg por va oral fanny vez al da Percocet Referrals: Wilfredo Solares MD [Staff Provider] - Bob Sandra MD [Staff Provider] - Attending/Attestation - Attestation I have personally seen and examined this patient.: Yes I have fully participated in the care of the patient.: Yes I have reviewed all pertinent clinical information, including history, physical exam and plan: Yes Notes (Text): Patient seen, examined and case discussed with lead medical technologist. Patient is postoperative day 1. Patient underwent robotic cholecystectomy. Patient reporting she had flatus this morning. Patient given one time of Morphine 2mg IV X1 this morning. She hadn't ask for any percocet since yesterday at the time of my rounds. Per surgery, patient is stable from their standpoint. No antibiotic recommended. Recommended for Perocet PRN. Discharge postoperative per surgery. Patient to follow-up in the clinic upon discharge. Patient recommended to repeat liver function tests prior to starting statin. Prescription: 1) Protonix 40mg PO once a day (30 tabs/0). When patient has follow-up in the clinic and recovered postoperative by surgery , she will need scripts for statin as long as liver function tests have normalized and vitamin D 50,000 IU once a week for 12 weeks given low vitamin D. Patient recommended lifestyle modifications to reduce her risk of overt diabetes , cholelithiasis, and lipid disorder. This is a summary of patient's hospitalization. Please refer to EMR for further details of record. Discharge Diagnoses: 1) Abdominal pain-->resolved Acute cholecystitis--> resolved History of ulcer, gastritis, benign polyp Assessment/plan * Prior history of gastritis, ulcers, benign polyp * General surgery on consult help appreciated * Preoperative/intraoperative/postoperative management per surgery * Per surgery--> clear for D/C from surgical standpoint, F/U with Dr. Solares in 1-2 weeks, percocet for pain, Diet as tolerated, No heavy lifting , >15-20 lbs for 4 weeks * GI on consult help appreciated * Completed EGD 01/15/18 * Dx. Mild antral gastritis, GERD without esophagitis, Small hiatal hernia * no UGI etiology * Biopsy: esophageal squamous mucosa with mild chronic inflammation. negative for changes of reflux esophagitis, negative for goblet cell metaplasia, negative for fungal organisms, gastric antrium for mild chronic inflammation, negative for H. pylori organisms. * Monitor CBC * Lipase normal * Amylase normal * CAT scan abdomen and pelvis findings concerning for cholecystitis. Consider correlation with ultrasound examination. 2 left ovarian cysts. Likely physiologic. * Abdominal ultrasound hepatic steatosis. Cholelithiasis with findings equivocal for acute cholecystitis. Nuclear HIDA scan recommended to evaluate patency of the cystic duct. * Protonix 40 IV every 12 hours. * EKG NSR * Chest xray: no active disease * Flagyl 250 IV every 8 hours (active since 01/14-) * Patient is not 2. Black Stool-->resolved Assessment/plan * Has not had further episodes of black stool in the hospital * Prior history of gastritis, ulcers, benign polyp however confounded by recent Pepto-Bismol use * Completed EGD on 01/15/18-->Mild antral gastritis, GERD without esophagitis, Small hiatal hernia-->recommendations listed in report * Protonix 40 mg IV daily * No NSAIDs, no iron, no aspirin * Rectal exam: normal no stool obtained, noted pimple performed by resident * Occult blood 3: pending 3. Lipid disorder-->chronic Assessment plan * She reports she does not take any medications to help control her cholesterol. * Discussed Lipid panel results with the patient: elevated TG, elevated cholestrol, low HDL * Patient will need lifestyle modifications to control her over weight 4. Vitamin D deficiency-->chronic Assessment/Plan * Noted review EMR * She will need vitamin D supplement when she is able to tolerate diet when she follow-up in the clinic post hospitalization 5. Overweight-->chronic Assessment/Plan * Patient mildly hyperglycemic on admission * Lipid panel available in the EMR; recommended statin when liver function tests have normalized. * A1c: 5.9--->repeat in one year to prevent overt diabetes * TSH normal 6. Impaired glucose tolerance-->chronic Assessment/Plan * A1c: 5.9 * Will need diet/exercise for lifestyle modifications to prevent overt diabetes 7. Prophylactic measure * Protonix 40 IV daily-->Switched to PO upon discharge * Patient went to OR yesterday. Stable for surgery for discharge today <Karan Wiley - Last Filed: 01/17/18 23:44> Provider - Provider Date of Admission: 01/14/18 13:47 Attending physician: Jeannine Crump DO Primary care physician: Dr. Shah Consults: Surgery: Sujatha GI: Jocy Time Spent in preparation of Discharge (in minutes): 40 Hospital Course - Lab Results Lab Results: Most Recent Lab Values WBC 10.3 K/uL (4.8-10.8) 01/17/18 07:37 RBC 3.73 Mil/uL (3.80-5.20) L 01/17/18 07:37 Hgb 11.3 g/dL (11.0-16.0) 01/17/18 07:37 Hct 32.7 % (34.0-47.0) L 01/17/18 07:37 MCV 87.8 fL (81.0-99.0) 01/17/18 07:37 MCH 30.2 pg (27.0-31.0) 01/17/18 07:37 MCHC 34.4 g/dL (33.0-37.0) 01/17/18 07:37 RDW 13.5 % (11.5-14.5) 01/17/18 07:37 Plt Count 350 K/uL (130-400) 01/17/18 07:37 MPV 8.2 fL (7.2-11.7) 01/17/18 07:37 Neut % (Auto) 85.1 % (50.0-75.0) H 01/17/18 07:37 Lymph % (Auto) 8.7 % (20.0-40.0) L 01/17/18 07:37 [place] % (Auto) 6.1 % (0.0-10.0) 01/17/18 07:37 Eos % (Auto) 0.0 % (0.0-4.0) 01/17/18 07:37 Baso % (Auto) 0.1 % (0.0-2.0) 01/17/18 07:37 Neut # (Auto) 8.8 K/uL (1.8-7.0) H 01/17/18 07:37 Lymph # (Auto) 0.9 K/uL (1.0-4.3) L 01/17/18 07:37 [place] # (Auto) 0.6 K/uL (0.0-0.8) 01/17/18 07:37 Eos # (Auto) 0.0 K/uL (0.0-0.7) 01/17/18 07:37 Baso # (Auto) 0.0 K/uL (0.0-0.2) 01/17/18 07:37 Neutrophils % (Manual) 85 % (50-75) H 01/17/18 07:37 Band Neutrophils % 4 % (0-2) H 01/17/18 07:37 Lymphocytes % (Manual) 8 % (20-40) L 01/17/18 07:37 Monocytes % (Manual) 3 % (0-10) 01/17/18 07:37 Platelet Estimate Normal (NORMAL) 01/17/18 07:37 RBC Morphology Normal 01/17/18 07:37 PT 12.7 SECONDS (9.7-12.2) H 01/14/18 15:23 INR 1.2 01/14/18 15:23 Sodium 137 mmol/L (132-148) 01/17/18 07:37 Potassium 3.7 mmol/L (3.6-5.2) 01/17/18 07:37 Chloride 101 mmol/L (98-107) 01/17/18 07:37 Carbon Dioxide 26 mmol/L (22-30) 01/17/18 07:37 Anion Gap 14 (10-20) 01/17/18 07:37 BUN 7 mg/dL (7-17) 01/17/18 07:37 Creatinine 0.6 mg/dL (0.7-1.2) L 01/17/18 07:37 Est GFR ( Amer) > 60 01/17/18 07:37 Est GFR (Non-Af Amer) > 60 01/17/18 07:37 Random Glucose 91 mg/dL (65-105) 01/17/18 07:37 Hemoglobin A1c 5.9 % (4.2-6.5) 01/15/18 06:20 Calcium 8.3 mg/dl (8.6-10.4) L 01/17/18 07:37 Phosphorus 2.9 mg/dL (2.5-4.5) 01/16/18 08:11 Magnesium 1.9 mg/dL (1.6-2.3) 01/16/18 08:11 Total Bilirubin 0.4 mg/dL (0.2-1.3) 01/17/18 07:37 AST 83 U/L (14-36) H D 01/17/18 07:37 ALT 69 U/L (9-52) H D 01/17/18 07:37 Alkaline Phosphatase 67 U/L (38-126) 01/17/18 07:37 Total Protein 6.3 g/dL (6.3-8.3) 01/17/18 07:37 Albumin 3.6 g/dL (3.5-5.0) 01/17/18 07:37 Globulin 2.6 gm/dL (2.2-3.9) 01/17/18 07:37 Albumin/Globulin Ratio 1.4 (1.0-2.1) 01/17/18 07:37 Triglycerides 158 mg/dL (0-149) H D 01/15/18 06:20 Cholesterol 205 mg/dL (0-199) H 01/15/18 06:20 LDL Cholesterol Direct 137 mg/dL (0-129) H 01/15/18 06:20 HDL Cholesterol 36 mg/dL (30-70) 01/15/18 06:20 Amylase 105 U/L (30-110) 01/14/18 08:04 Lipase 46 U/L (23-300) 01/14/18 08:04 25-OH Vitamin D Total 14.9 NG/ML (30.0-100.0) L 01/15/18 06:20 Free T4 0.94 ng/dL (0.78-2.19) 01/16/18 08:11 TSH 3rd Generation 3.42 mIU/L (0.46-4.68) 01/16/18 08:11 Beta HCG, Quant < 2.39 mIU/ML 01/14/18 08:04 Urine Color Yellow (YELLOW) 01/14/18 08:04 Urine Clarity Hazy (Clear) 01/14/18 08:04 Urine pH 8.0 (5.0-8.0) 01/14/18 08:04 Ur Specific [place] 1.011 (1.003-1.030) 01/14/18 08:04 Urine Protein Negative mg/dL (NEGATIVE) 01/14/18 08:04 Urine Glucose (UA) Normal mg/dL (Normal) 01/14/18 08:04 Urine Ketones Negative mg/dL (NEGATIVE) 01/14/18 08:04 Urine Blood Negative (NEGATIVE) 01/14/18 08:04 Urine Nitrate Negative (NEGATIVE) 01/14/18 08:04 Urine Bilirubin Negative (NEGATIVE) 01/14/18 08:04 Urine Urobilinogen Normal mg/dL (0.2-1.0) 01/14/18 08:04 Ur Leukocyte Esterase Neg Guy/uL (Negative) 01/14/18 08:04 Urine WBC (Auto) 1 /hpf (0-5) 01/14/18 08:04 Urine RBC (Auto) < 1 /hpf (0-3) 01/14/18 08:04 Ur Squamous Epith Cells 1 /hpf (0-5) 01/14/18 08:04 Calcium Oxalate Crystal None /hpf (<OCC) 01/14/18 08:04 Amorphous Sediment Few /ul (<OCC) H 01/14/18 08:04 Urine Bacteria None (<OCC) 01/14/18 08:04 Urine HCG, Qual Negative (NEGATIVE) 01/16/18 10:40 - Hospital Course Hospital Course: On admission 01/14/18: Chief complaint "abdominal pain" HPI Patient is a 47 year old female with dyslipidemia complaining of abdominal pain x5 days. Characterizes pain as severe, rated as 10/10 last night , which spurred her to come in today. Currently rates the pain as 2/10. Patient states that pain wakes her up in the middle of the night, and she denies any timeline pattern with meals or bowel movements. Patient describes pain as nonradiating and localized to the right upper quadrant and towards midline, with additional pain to the right shoulder with deep inspiration. She has only started having these pains since she started taking "Vincentian weight-loss seeds ", but also that if she did not consume them she would be constipated. Patient started taking Pepto-bismol 4 days ago (Fri), which did not relieve her symptoms. Apple-cider vinegar with baking soda aided her manually induced vomiting (x3 episodes) because emesis relieves her pain. She believes that the induction of vomiting has contributed to the development of a nonproductive cough and sore throat. Patient states that she has noticed black stool starting 5 days ago (Addis). Patient went to [place] last month (12/15-) where she ate large quantities of seafood[place] Patient also complains of chills and some tingling in hands bilaterally. Patient denies hematochezia, hematemesis, dysurea, urinary frequency, chest pain , palpitations, dyspnea, and fever, headache, dizziness. Hospital course: Patient was admitted for evaluation of abdominal pain after abdominal CT and ultrasound revealed findings consistent with acute cholecystitis. Surgery consult was placed, who treated with Flagyl, IV fluids prior to surgical intervention. Since she had a history of PUD and complained of 5 day history of dark stools, GI consult was placed. Patient had an EGD with biopsy done to rule out GI bleed prior to surgery. EGD findings revealed small hiatal hernia and GERD with no bleed noted. Patient successfully underwent robotic cholecystectomy without acute complications. During her hospitalization, patient was found to have elevated triglycerides, elevated total cholesterol and low HDL, however patient was not discharged on statins due to elevated LFTs on discharge. Patient was cleared for discharged by Surgery. Patient was advised to follow up with PMD. Images: Abdomen/pelvis CT (01/14/18): Mild mural thickening. Findings somewhat concerning for cholecystitis. No pericholecystic fluid/inflammatory change. Two left ovarian cysts, 2.1 cm and 2.6 cm, likely physiologic. Abdomen US (01/14/18): Cholelithiasis with findings equivocal for acute cholecystitis. EGD: small hiatal hernia. GERD as evident by free flow of gastric contents into esophagus - Biopsied. Gastritis - biopsied. Normal examined duodenum. Discharge summary: Patient is medically stable for discharge. Follow up with your PMD at [facility] for repeat LFTs and to discuss results of lipid panel. Follow up in the clinic to discuss results of biopsy from EGD and possible follow up with GI. Script given to patient on discharge: Protonix 40mg by mouth once daily Percocet Discharge Exam - Head Exam Head Exam: ATRAUMATIC, NORMOCEPHALIC - Eye Exam Eye Exam: EOMI - ENT Exam ENT Exam: Mucous Membranes Moist - Respiratory Exam Respiratory Exam: Clear to PA & Lateral, UNREMARKABLE. absent: Rales, Rhonchi, Wheezes, Respiratory Distress, Stridor - Cardiovascular Exam Cardiovascular Exam: REGULAR RHYTHM, +S1, +S2 - GI/Abdominal Exam GI & Abdominal Exam: Normal Bowel Sounds, Soft, Tenderness (to site of dressings. 4 dressings noted to abdomen - clean dry intact. No drains in place. ). absent: Distended, Firm, Guarding, Hernia - Extremities Exam Extremities exam: pedal pulses present Additional comments: no calf tenderness or pedal edema - Neurological Exam Neurological exam: Alert, Oriented x3 - Psychiatric Exam Psychiatric exam: Normal Affect, Normal Mood - Skin Skin Exam: Dry, Intact, Warm
[2018-01-17 15:38] VITALS: BP 114/67; PULSE 59; RESP 18; TEMP 98.2; O2SAT 98
--- NOTE | 2018-01-18 11:26 | VASCLAB ---
Date of service: 01/16/2018 PROCEDURE: Lower Extremity Venous Duplex Exam. HISTORY: Pain in limb PRIORS: None. TECHNIQUE: Bilateral common femoral, femoral, popliteal and posterior tibial, peroneal and great saphenous veins were evaluated. Flow was assessed with color Doppler, compressibility, assessment of phasic flow and augmentation response. Report prepared by IRIS Head FINDINGS: RIGHT: 1. Common Femoral Vein: 1.1. Compressibility - Fully compressible: Thrombus - None : Flow - Phasic: Augmentation -Normal: Reflux - None. 2. Femoral Vein: (proximal and mid views only) Unable to visualize distally. 2.1. Compressibility - Fully compressible: Thrombus - None : Flow - Phasic: Augmentation -Normal: Reflux - None. 3. Popliteal Vein: 3.1. Unable to visualize 4. Posterior Tibial Vein: 4.1. Compressibility - Fully compressible: Thrombus - None: Flow - Phasic: Augmentation -Normal: Reflux - None. 5. Peroneal Vein: 5.1. Compressibility - Fully compressible: Thrombus - None: Flow - Phasic: Augmentation -Normal: Reflux - None. 6. Great Saphenous Vein: 6.1. Compressibility - Fully compressible: Thrombus - None: Flow - Phasic: Augmentation - Normal: Reflux - None. LEFT: 1. Common Femoral Vein: 1.1. Compressibility - Fully compressible: Thrombus - None: Flow - Phasic: Augmentation -Normal: Reflux - None. 2. Femoral Vein: 2.1. Compressibility - Fully compressible: Thrombus - None: Flow - Phasic: Augmentation -Normal: Reflux - None. 3. Popliteal Vein: 3.1. Compressibility - Fully compressible: Thrombus - None : Flow - Phasic: Augmentation -Normal: Reflux - None. 4. Posterior Tibial Vein: 4.1. Compressibility - Fully compressible: Thrombus - None: Flow - Phasic: Augmentation -Normal: Reflux - None. 5. Peroneal Vein: 5.1. Compressibility - Fully compressible: Thrombus - None: Flow - Phasic: Augmentation -Normal: Reflux - None. 6. Great Saphenous Vein: 6.1. Compressibility - Fully compressible: Thrombus - None: Flow - Phasic: Augmentation - Normal: Reflux - None. OTHER FINDINGS: Right: Limited imaging of the right lower extremity due to dense skin. Left: None significant. IMPRESSION: Right: No evidence of deep or superficial vein thrombosis of the right lower extremity, for the examined veins. Normal valve function noted of the right side. Left: No evidence of deep or superficial vein thrombosis of the left lower extremity. Normal valve function noted of the left side.
== END 2018-01-17 17:13 | disposition home or self-care (01) | DRG 493 ==
LOC: C.ER 06:52 → C.9E 13:47 → C.5S 14:54
PROVIDERS: ADMIT Hospitalist; ATTEND Hospitalist
PROC: 0DB48ZX Excision of Esophagogastric Junction, Via Natural or Artificial Opening Endoscopic, Diagnostic (ICD-10-PCS; 2018-01-15)
PROC: 8E0W4CZ Robotic Assisted Procedure of Trunk Region, Percutaneous Endoscopic Approach (ICD-10-PCS; 2018-01-16)
PROC: 0FT44ZZ Resection of Gallbladder, Percutaneous Endoscopic Approach (ICD-10-PCS; principal; 2018-01-16 16:30)
DX: K80.12 Calculus of gallbladder with acute and chronic cholecystitis without obstruction (principal); K92.1 Melena; E11.65 Type 2 diabetes mellitus with hyperglycemia; E55.9 Vitamin D deficiency, unspecified; E66.3 Overweight; E78.1 Pure hyperglyceridemia; E78.5 Hyperlipidemia, unspecified; K21.9 Gastro-esophageal reflux disease without esophagitis; K29.60 Other gastritis without bleeding; K44.9 Diaphragmatic hernia without obstruction or gangrene; Z87.11 Personal history of peptic ulcer disease; T47.6X5A Adverse effect of antidiarrheal drugs, initial encounter; Z86.010 Personal history of colon polyps; K76.0 Fatty (change of) liver, not elsewhere classified; Z68.28 Body mass index [BMI] 28.0-28.9, adult